=== PATIENT | male | born 1950 | race Caucasian/White ===

== ENCOUNTER 2022-01-31 11:08 | Outpatient (CLI) | payer OTHER ==
[2022-01-31 11:44] LABS: BASOPHILS % (AUTO) 0.3 % (0.0-2.0); EOSINOPHILS % (AUTO) 0.5 % (0.0-4.0); HEMOGLOBIN 10.7 g/dL (14.0-18.0); LYMPHOCYTES % (AUTO) 25.9 % (20.5-51.5); MEAN CORPUSCULAR HEMOGLOBIN 29 pg (27-31); MEAN CORPUSCULAR HGB CONC 32 % (32-36); MEAN CORPUSCULAR VOLUME 93 fL (79.0-98.0); MONOCYTES # (AUTO) 0.7 K/uL (0.0-1.0); MONOCYTES % (AUTO) 8.4 % (1.7-9.3); NEUTROPHILS # (AUTO) 5.1 K/uL (1.8-7.7); NEUTROPHILS % (AUTO) 64.9 % (40.0-70.0); PLATELET COUNT (AUTO) 203 K/uL (130-430); RED BLOOD CELL COUNT(AUTO) 3.67 MIL/uL (4.2-6.2); RED CELL DISTRIBUTION WIDTH 16.5 % (9.0-15.0); WHITE BLOOD COUNT (AUTO) 7.8 K/uL (4.8-10.8)
[2022-01-31 11:47] LABS: CALCIUM 8.9 mg/dL (8.4-11.0); CREATININE 6.82 mg/dL (0.55-1.30); POTASSIUM 5.4 mmol/L (3.5-5.1)
[2022-01-31 11:50] LABS: INR 0.9 (0.80-1.20); PROTHROMBIN TIME 9.8 SECS (9.5-12.5)
[2022-01-31 11:59] LABS: BILIRUBIN,URINE NEGATIVE (NEGATIVE); BLOOD, URINE NEGATIVE (NEGATIVE); CLARITY/URINE CLEAR (CLEAR); COLOR,URINE YELLOW (YELLOW); GLUCOSE,URINE TRACE (NEGATIVE); KETONES,URINE NEGATIVE (NEGATIVE); LEUKOCYTE ESTERASE ,URINE NEGATIVE (NEGATIVE); NITRITE, URINE NEGATIVE (NEGATIVE); PROTEIN URINE 3+ (NEGATIVE); UROBILINOGEN,URINE 0.2 (0.2-1.0)
[2022-01-31 13:07] LABS: BACTERIA,URINE RARE /HPF (None Seen); HYALINE CASTS, URINE 0-10 /LPF (None Seen); RBC,URINE 0-3 /HPF (0-3); WBC,URINE 0-3 /HPF (0-3)
== END 2022-01-31 18:53 | disposition home or self-care (01) ==
LOC: SLB 11:08
PROVIDERS: ATTEND Internal Medicine
DX: Z01.812 Encounter for preprocedural laboratory examination (principal); I10 Essential (primary) hypertension; E11.22 Type 2 diabetes mellitus with diabetic chronic kidney disease; N18.9 Chronic kidney disease, unspecified
CPT/HCPCS: 36415; 80048; 81000; 85025; 85610-TC; 85730-TC

== ENCOUNTER 2022-10-22 15:31 | Inpatient (IN) | payer OTHER ==
[~2022-10-22] VITALS: Ht 167.6 cm; Wt 76.9 kg
[2022-10-22 15:35] VITALS: BP_SYST 100
[2022-10-22 17:43] LABS: BASOPHILS % (AUTO) 0.2 % (0.0-2.0); EOSINOPHILS % (AUTO) 0.1 % (0.0-4.0); HEMATOCRIT 35.6 % (36-54); HEMOGLOBIN 11.1 g/dL (14.0-18.0); LYMPHOCYTES # (AUTO) 1.8 K/uL (1.0-5.5); MEAN CORPUSCULAR HEMOGLOBIN 29 pg (27-31); MEAN CORPUSCULAR HGB CONC 31 % (32-36); MEAN CORPUSCULAR VOLUME 91 fL (79.0-98.0); MONOCYTES # (AUTO) 0.7 K/uL (0.0-1.0); MONOCYTES % (AUTO) 9.6 % (1.7-9.3); NEUTROPHILS # (AUTO) 5.2 K/uL (1.8-7.7); NEUTROPHILS % (AUTO) 67.1 % (40.0-70.0); PLATELET COUNT (AUTO) 218 K/uL (130-430); RED CELL DISTRIBUTION WIDTH 19.3 % (9.0-15.0); WHITE BLOOD COUNT (AUTO) 7.7 K/uL (4.8-10.8)
[2022-10-22 18:10] LABS: ANION GAP 13 (5-15); CALCIUM 9.6 mg/dL (8.4-11.0); CHLORIDE 98 mmol/L (98-107); GLUCOSE 161 mg/dL (70-99); UREA NITROGEN, BLOOD 77 mg/dL (8-21)
[2022-10-22 18:21] LABS: ALANINE AMINOTRANSFERASE 35 U/L (12-78); ALBUMIN 2.8 g/dL (3.4-4.8); ASPARTATE AMINOTRANSFERASE 45 U/L (10-37); TOTAL BILIRUBIN 0.4 mg/dL (0.0-1.0)
[2022-10-22 18:29] LABS: CREATININE 8.94 mg/dL (0.55-1.30)
[2022-10-22 18:55] LABS: C-REACTIVE PROTEIN QUANT 19.6 mg/dL (0-0.5)
[2022-10-22] MEDS ORDERED: AZITHROMYCIN 500 MG in NS 250 ML IV ONE (23:15)
[2022-10-22] MEDS ORDERED: cefTRIAXone 1 GM in D5W 50 ML IV SCH (23:15)
[2022-10-22] MEDS ORDERED: ALBUTEROL MDI INHALATION 8 GM INH INH PRN (23:15)
[2022-10-22] MEDS ORDERED: AZITHROMYCIN 500 MG/VIAL (ZITHROMAX) IV ONE (23:35)
[2022-10-22] MEDS ORDERED: guaiFENesin/DEXTROMETHORPHAN 118 ML PO PRN (23:45)
[2022-10-22] MEDS: DEXAMETHASONE SOD PHOSPHATE 10 MG/ML VIAL IVP SCH (23:45)
[2022-10-22] MEDS ORDERED: DEXTROSE 50% JECT 50 ML DISP.SYRIN IVP PRN (23:45)
[2022-10-23 00:16] VITALS: BP_SYST 146
[2022-10-23] MEDS ORDERED: cefTRIAXone 1 GM IVPB PREMIX 50 ML IV ONE (01:13)
[2022-10-23 07:30] LABS: HEMATOCRIT 35.5 % (36-54); HEMOGLOBIN 10.9 g/dL (14.0-18.0); LYMPHOCYTES # (AUTO) 0.9 K/uL (1.0-5.5); LYMPHOCYTES % (AUTO) 13.5 % (20.5-51.5); MEAN CORPUSCULAR HEMOGLOBIN 28 pg (27-31); MEAN CORPUSCULAR HGB CONC 31 % (32-36); MEAN CORPUSCULAR VOLUME 92 fL (79.0-98.0); MONOCYTES # (AUTO) 0.2 K/uL (0.0-1.0); MONOCYTES % (AUTO) 3.2 % (1.7-9.3); NEUTROPHILS # (AUTO) 5.4 K/uL (1.8-7.7); NEUTROPHILS % (AUTO) 83.3 % (40.0-70.0); PLATELET COUNT (AUTO) 214 K/uL (130-430); RED BLOOD CELL COUNT(AUTO) 3.85 MIL/uL (4.2-6.2); RED CELL DISTRIBUTION WIDTH 19.2 % (9.0-15.0); WHITE BLOOD COUNT (AUTO) 6.5 K/uL (4.8-10.8)
[2022-10-23 08:16] LABS: ANION GAP 17 (5-15); CALCIUM 8.7 mg/dL (8.4-11.0); CHLORIDE 96 mmol/L (98-107); GLUCOSE 174 mg/dL (70-99); UREA NITROGEN, BLOOD 94 mg/dL (8-21)
[2022-10-23 08:24] LABS: TOTAL BILIRUBIN 0.3 mg/dL (0.0-1.0)
[2022-10-23 08:25] LABS: ALANINE AMINOTRANSFERASE 28 U/L (12-78); ALBUMIN 2.4 g/dL (3.4-4.8); ASPARTATE AMINOTRANSFERASE 32 U/L (10-37); CHOLESTEROL 118 mg/dL (<200); HDL CHOLESTEROL 59 mg/dL (>45); PHOSPHORUS 7.9 mg/dL (2.7-4.5); TRIGLYCERIDES 119 mg/dL (30-150)
[2022-10-23] MEDS: BRIMONIDINE TARTRATE 0.2% 5 mL EYE DROPS OP SCH ×2 (09:28→22:54)
[2022-10-23] MEDS: ATORVASTATIN 20 MG TABLET PO ONE ×2 (09:30→11:58)
[2022-10-23] MEDS ORDERED: CARVEDILOL 12.5 MG TABLET (COREG) PO ONE (09:30)
[2022-10-23] MEDS: RANOLAZINE 500 MG TAB.SR.12H PO ONE ×2 (09:30→11:58)
[2022-10-23] MEDS: ALBUTEROL MDI INHALATION 8 GM INH INH SCH ×3 (09:37→17:00)
[2022-10-23 09:50] VITALS: BP_SYST 146
[2022-10-23 11:00] VITALS: BP_SYST 149
[2022-10-23] MEDS: SODIUM POLYSTYRENE SULFONATE 15 GM/60 ML UDBTL PO ONE ×2 (11:15→11:57)
[2022-10-23] MEDS: CALCIUM ACETATE 667 MG CAP PO SCH ×2 (11:57→17:02)
[2022-10-23] MEDS: INSULIN GLARGINE 100 UNITS/ML, 10 ML VIAL SUBCUT SCH (12:06)
[2022-10-23] MEDS: INSULIN REGULAR, HUMAN 100 UNITS/ML, 3 ML VIAL (humuLIN R) SUBCUT PRN ×3 (12:10→23:02)
[2022-10-23] MEDS ORDERED: CHOLECALCIFEROL (VITAMIN D3) 2,000 UNIT TABLET PO ONE (14:30)
[2022-10-23] MEDS: AZITHROMYCIN 500 MG in NS 250 ML IV SCH (14:54)
[2022-10-23] MEDS: CEFEPIME 2 GM in D5W 100 ML IV SCH (14:55)
[2022-10-23 16:41] VITALS: BP_SYST 133
[2022-10-23 20:00] VITALS: BP_SYST 143
[2022-10-23] MEDS: LATANOPROST 2.5 ML DROPS (XALATAN) OP SCH (21:00)
[2022-10-23] MEDS: DEXAMETHASONE SOD PHOSPHATE 10 MG/ML VIAL IVP SCH (22:53)
[2022-10-23] MEDS: ENOXAPARIN SODIUM 30 MG/0.3 ML SYRINGE SUBCUT SCH (22:54)
[2022-10-23] MEDS: CARVEDILOL 12.5 MG TABLET (COREG) PO SCH (23:01)
[2022-10-24 00:38] VITALS: BP_SYST 128
[2022-10-24] MEDS: INSULIN REGULAR, HUMAN 100 UNITS/ML, 3 ML VIAL (humuLIN R) SUBCUT PRN ×3 (06:17→17:10)
[2022-10-24 08:00] VITALS: BP_SYST 125
[2022-10-24] MEDS: ALBUTEROL MDI INHALATION 8 GM INH INH SCH ×4 (08:27→21:03)
[2022-10-24] MEDS ORDERED: BARICITINIB -Non-Formulary 2 MG TABLET PO SCH (09:00)
[2022-10-24 09:21] LABS: BASOPHILS % (AUTO) 0.1 % (0.0-2.0); HEMATOCRIT 36.3 % (36-54); HEMOGLOBIN 11.3 g/dL (14.0-18.0); LYMPHOCYTES # (AUTO) 0.7 K/uL (1.0-5.5); LYMPHOCYTES % (AUTO) 7.1 % (20.5-51.5); MEAN CORPUSCULAR HEMOGLOBIN 29 pg (27-31); MEAN CORPUSCULAR HGB CONC 31 % (32-36); MEAN CORPUSCULAR VOLUME 93 fL (79.0-98.0); MONOCYTES # (AUTO) 0.3 K/uL (0.0-1.0); MONOCYTES % (AUTO) 3.6 % (1.7-9.3); NEUTROPHILS # (AUTO) 8.2 K/uL (1.8-7.7); NEUTROPHILS % (AUTO) 89.2 % (40.0-70.0); PLATELET COUNT (AUTO) 221 K/uL (130-430); RED CELL DISTRIBUTION WIDTH 19.3 % (9.0-15.0); WHITE BLOOD COUNT (AUTO) 9.2 K/uL (4.8-10.8)
[2022-10-24] MEDS: CALCIUM ACETATE 667 MG CAP PO SCH ×3 (09:27→17:02)
[2022-10-24] MEDS: ATORVASTATIN 20 MG TABLET PO SCH (09:28)
[2022-10-24] MEDS: RANOLAZINE 500 MG TAB.SR.12H PO SCH (09:28)
[2022-10-24] MEDS: CHOLECALCIFEROL (VITAMIN D3) 2,000 UNIT TABLET PO SCH (09:28)
[2022-10-24] MEDS: ASPIRIN 81 MG TAB.CHEW PO SCH (09:29)
[2022-10-24] MEDS: BRIMONIDINE TARTRATE 0.2% 5 mL EYE DROPS OP SCH ×2 (09:29→21:00)
[2022-10-24] MEDS: CARVEDILOL 12.5 MG TABLET (COREG) PO SCH ×2 (09:30→21:00)
[2022-10-24] MEDS: INSULIN GLARGINE 100 UNITS/ML, 10 ML VIAL SUBCUT SCH (09:31)
[2022-10-24] MEDS: PANTOPRAZOLE SODIUM 40 MG/VIAL (PROTONIX) IVP SCH (09:32)
[2022-10-24 11:21] VITALS: BP_SYST 132
[2022-10-24] MEDS: CEFEPIME 2 GM in D5W 100 ML IV SCH (12:57)
[2022-10-24 13:54] LABS: ANION GAP 15 (5-15); CALCIUM 8.8 mg/dL (8.4-11.0); CHLORIDE 97 mmol/L (98-107); CREATININE 7.58 mg/dL (0.55-1.30); GLUCOSE 237 mg/dL (70-99); UREA NITROGEN, BLOOD 72 mg/dL (8-21)
[2022-10-24] MEDS: AZITHROMYCIN 500 MG in NS 250 ML IV SCH (14:33)
[2022-10-24] MEDS ORDERED: ASCORBIC ACID 500 MG TABLET PO ONE (15:30)
[2022-10-24] MEDS ORDERED: INSULIN REGULAR, HUMAN 100 UNITS/ML, 3 ML VIAL (humuLIN R) SUBCUT PRN (15:45)
[2022-10-24] MEDS ORDERED: DEXTROSE 50% JECT 50 ML DISP.SYRIN IVP PRN (15:45)
[2022-10-24 16:00] VITALS: BP_SYST 129
[2022-10-24] MEDS ORDERED: DOCUSATE SODIUM 100 MG CAPSULE PO ONE (16:00)
[2022-10-24 20:00] VITALS: BP_SYST 127
[2022-10-24] MEDS: LATANOPROST 2.5 ML DROPS (XALATAN) OP SCH (21:00)
[2022-10-24] MEDS: DOCUSATE SODIUM 250 MG CAPSULE PO SCH (21:00)
[2022-10-24] MEDS: ENOXAPARIN SODIUM 30 MG/0.3 ML SYRINGE SUBCUT SCH (21:00)
[2022-10-25] MEDS: DEXAMETHASONE SOD PHOSPHATE 10 MG/ML VIAL IVP SCH ×2 (00:42→23:54)
[2022-10-25 07:40] VITALS: BP_SYST 141
[2022-10-25] MEDS: CALCIUM ACETATE 667 MG CAP PO SCH ×3 (08:44→17:05)
[2022-10-25] MEDS: ASPIRIN 81 MG TAB.CHEW PO SCH (08:45)
[2022-10-25] MEDS: ATORVASTATIN 20 MG TABLET PO SCH (08:45)
[2022-10-25] MEDS: RANOLAZINE 500 MG TAB.SR.12H PO SCH (08:45)
[2022-10-25] MEDS: ASCORBIC ACID 500 MG TABLET PO SCH (08:45)
[2022-10-25] MEDS: CHOLECALCIFEROL (VITAMIN D3) 2,000 UNIT TABLET PO SCH (08:45)
[2022-10-25] MEDS: DOCUSATE SODIUM 250 MG CAPSULE PO SCH ×2 (08:46→21:05)
[2022-10-25] MEDS: CARVEDILOL 12.5 MG TABLET (COREG) PO SCH ×2 (08:46→21:10)
[2022-10-25] MEDS: ALBUTEROL MDI INHALATION 8 GM INH INH SCH ×4 (08:47→19:32)
[2022-10-25] MEDS: BRIMONIDINE TARTRATE 0.2% 5 mL EYE DROPS OP SCH ×2 (08:49→21:05)
[2022-10-25 09:03] LABS: BASOPHILS % (AUTO) 0.1 % (0.0-2.0); HEMATOCRIT 37.1 % (36-54); HEMOGLOBIN 11.7 g/dL (14.0-18.0); LYMPHOCYTES # (AUTO) 0.5 K/uL (1.0-5.5); LYMPHOCYTES % (AUTO) 5.8 % (20.5-51.5); MEAN CORPUSCULAR HEMOGLOBIN 29 pg (27-31); MEAN CORPUSCULAR HGB CONC 32 % (32-36); MEAN CORPUSCULAR VOLUME 91 fL (79.0-98.0); MONOCYTES # (AUTO) 0.3 K/uL (0.0-1.0); MONOCYTES % (AUTO) 3.5 % (1.7-9.3); NEUTROPHILS # (AUTO) 8.6 K/uL (1.8-7.7); NEUTROPHILS % (AUTO) 90.6 % (40.0-70.0); PLATELET COUNT (AUTO) 261 K/uL (130-430); RED BLOOD CELL COUNT(AUTO) 4.08 MIL/uL (4.2-6.2); RED CELL DISTRIBUTION WIDTH 18.5 % (9.0-15.0); WHITE BLOOD COUNT (AUTO) 9.5 K/uL (4.8-10.8)
[2022-10-25] MEDS: INSULIN GLARGINE 100 UNITS/ML, 10 ML VIAL SUBCUT SCH (09:03)
[2022-10-25 09:16] LABS: ALANINE AMINOTRANSFERASE 26 U/L (12-78); ALBUMIN 2.7 g/dL (3.4-4.8); ANION GAP 11 (5-15); ASPARTATE AMINOTRANSFERASE 27 U/L (10-37); CALCIUM 9.1 mg/dL (8.4-11.0); CHLORIDE 94 mmol/L (98-107); CREATININE 5.96 mg/dL (0.55-1.30); GLUCOSE 264 mg/dL (70-99); PHOSPHORUS 5.2 mg/dL (2.7-4.5); TOTAL BILIRUBIN 0.4 mg/dL (0.0-1.0); UREA NITROGEN, BLOOD 58 mg/dL (8-21)
[2022-10-25] MEDS: PANTOPRAZOLE SODIUM 40 MG/VIAL (PROTONIX) IVP SCH (09:57)
[2022-10-25 11:30] VITALS: BP_SYST 120
[2022-10-25] MEDS: INSULIN REGULAR, HUMAN 100 UNITS/ML, 3 ML VIAL (humuLIN R) SUBCUT PRN ×2 (11:54→17:07)
[2022-10-25] MEDS: AZITHROMYCIN 500 MG in NS 250 ML IV SCH (14:06)
[2022-10-25] MEDS: CEFEPIME 2 GM in D5W 100 ML IV SCH (14:06)
[2022-10-25 16:07] VITALS: BP_SYST 116
[2022-10-25 20:00] VITALS: BP_SYST 138
[2022-10-25] MEDS: guaiFENesin/DEXTROMETHORPHAN 10 ML UDC PO PRN (21:04)
[2022-10-25] MEDS: ENOXAPARIN SODIUM 30 MG/0.3 ML SYRINGE SUBCUT SCH (21:05)
[2022-10-25] MEDS: LATANOPROST 2.5 ML DROPS (XALATAN) OP SCH (21:06)
[2022-10-26] VITALS: BP_SYST 126
[2022-10-26 06:08] LABS: BASOPHILS % (AUTO) 0.1 % (0.0-2.0); HEMATOCRIT 33.4 % (36-54); HEMOGLOBIN 10.7 g/dL (14.0-18.0); LYMPHOCYTES # (AUTO) 0.5 K/uL (1.0-5.5); LYMPHOCYTES % (AUTO) 5.9 % (20.5-51.5); MEAN CORPUSCULAR HEMOGLOBIN 29 pg (27-31); MEAN CORPUSCULAR HGB CONC 32 % (32-36); MEAN CORPUSCULAR VOLUME 90 fL (79.0-98.0); MONOCYTES # (AUTO) 0.4 K/uL (0.0-1.0); MONOCYTES % (AUTO) 4.2 % (1.7-9.3); NEUTROPHILS # (AUTO) 8.4 K/uL (1.8-7.7); NEUTROPHILS % (AUTO) 89.8 % (40.0-70.0); PLATELET COUNT (AUTO) 232 K/uL (130-430); RED BLOOD CELL COUNT(AUTO) 3.69 MIL/uL (4.2-6.2); RED CELL DISTRIBUTION WIDTH 18.1 % (9.0-15.0); WHITE BLOOD COUNT (AUTO) 9.3 K/uL (4.8-10.8)
[2022-10-26 06:43] LABS: ANION GAP 18 (5-15); CHLORIDE 92 mmol/L (98-107); GLUCOSE 194 mg/dL (70-99); UREA NITROGEN, BLOOD 99 mg/dL (8-21)
[2022-10-26] MEDS: ALBUTEROL MDI INHALATION 8 GM INH INH SCH ×3 (08:16→19:57)
[2022-10-26] MEDS: CARVEDILOL 12.5 MG TABLET (COREG) PO SCH ×2 (09:00→21:48)
[2022-10-26] MEDS: ASPIRIN 81 MG TAB.CHEW PO SCH (09:00)
[2022-10-26] MEDS: DOCUSATE SODIUM 250 MG CAPSULE PO SCH ×2 (09:00→21:45)
[2022-10-26] MEDS: CHOLECALCIFEROL (VITAMIN D3) 2,000 UNIT TABLET PO SCH (09:23)
[2022-10-26] MEDS: ASCORBIC ACID 500 MG TABLET PO SCH (09:23)
[2022-10-26] MEDS: PANTOPRAZOLE SODIUM 40 MG/VIAL (PROTONIX) IVP SCH (09:24)
[2022-10-26] MEDS: BRIMONIDINE TARTRATE 0.2% 5 mL EYE DROPS OP SCH ×2 (09:25→22:13)
[2022-10-26] MEDS: RANOLAZINE 500 MG TAB.SR.12H PO SCH (09:25)
[2022-10-26] MEDS: CALCIUM ACETATE 667 MG CAP PO SCH ×3 (09:25→17:50)
[2022-10-26] MEDS: ATORVASTATIN 20 MG TABLET PO SCH (09:26)
[2022-10-26] MEDS: INSULIN GLARGINE 100 UNITS/ML, 10 ML VIAL SUBCUT SCH (09:30)
[2022-10-26 09:39] VITALS: BP_SYST 126
[2022-10-26 11:47] VITALS: BP_SYST 113
[2022-10-26] MEDS: CEFEPIME 2 GM in D5W 100 ML IV SCH (12:24)
[2022-10-26] MEDS: INSULIN REGULAR, HUMAN 100 UNITS/ML, 3 ML VIAL (humuLIN R) SUBCUT PRN ×2 (12:26→22:22)
[2022-10-26] MEDS ORDERED: ALPRAZolam 0.25 MG TABLET PO ONE (12:45)
[2022-10-26 13:49] LABS: BILIRUBIN,URINE NEGATIVE (NEGATIVE); CLARITY/URINE CLEAR (CLEAR); COLOR,URINE YELLOW (YELLOW); GLUCOSE,URINE TRACE (NEGATIVE); KETONES,URINE 1+ (NEGATIVE); LEUKOCYTE ESTERASE ,URINE 2+ (NEGATIVE); NITRITE, URINE NEGATIVE (NEGATIVE); PH,URINE 5.5 (5.0-8.0); PROTEIN URINE 2+ (NEGATIVE); UROBILINOGEN,URINE 0.2 (0.2-1.0)
[2022-10-26 13:52] LABS: BLOOD, URINE TRACE (NEGATIVE)
[2022-10-26 13:57] LABS: BACTERIA,URINE FEW /HPF (None Seen); RBC,URINE 0-3 /HPF (0-3)
[2022-10-26 13:58] LABS: MUCUS,URINE None Seen /LPF (None Seen)
[2022-10-26 16:33] VITALS: BP_SYST 134
[2022-10-26] MEDS: EPOETIN ALFA-EPBX 3,000 UNITS/ML VIAL SUBCUT SCH (17:51)
[2022-10-26 20:00] VITALS: BP_SYST 122
[2022-10-26] MEDS: LATANOPROST 2.5 ML DROPS (XALATAN) OP SCH (21:00)
[2022-10-26] MEDS: LINEZOLID 300 ML IV SCH (21:45)
[2022-10-26] MEDS: ENOXAPARIN SODIUM 30 MG/0.3 ML SYRINGE SUBCUT SCH (21:46)
[2022-10-26] MEDS: DEXAMETHASONE SOD PHOSPHATE 10 MG/ML VIAL IVP SCH (22:23)
[2022-10-27] VITALS: BP_SYST 130
[2022-10-27] MEDS ORDERED: DIPHENHYDRAMINE INJ 50 MG/ML VIAL IM ONE (01:30)
[2022-10-27] MEDS: DIPHENHYDRAMINE INJ 50 MG/ML VIAL IVP PRN (01:42)
[2022-10-27 06:55] LABS: BASOPHILS % (AUTO) 0.1 % (0.0-2.0); HEMATOCRIT 35.6 % (36-54); HEMOGLOBIN 11.4 g/dL (14.0-18.0); LYMPHOCYTES # (AUTO) 0.7 K/uL (1.0-5.5); LYMPHOCYTES % (AUTO) 6.9 % (20.5-51.5); MEAN CORPUSCULAR HEMOGLOBIN 29 pg (27-31); MEAN CORPUSCULAR HGB CONC 32 % (32-36); MEAN CORPUSCULAR VOLUME 90 fL (79.0-98.0); MONOCYTES # (AUTO) 0.3 K/uL (0.0-1.0); MONOCYTES % (AUTO) 3.1 % (1.7-9.3); NEUTROPHILS # (AUTO) 8.8 K/uL (1.8-7.7); NEUTROPHILS % (AUTO) 89.9 % (40.0-70.0); PLATELET COUNT (AUTO) 290 K/uL (130-430); RED BLOOD CELL COUNT(AUTO) 3.98 MIL/uL (4.2-6.2); RED CELL DISTRIBUTION WIDTH 18.5 % (9.0-15.0); WHITE BLOOD COUNT (AUTO) 9.8 K/uL (4.8-10.8)
[2022-10-27 07:07] LABS: ALANINE AMINOTRANSFERASE 22 U/L (12-78); ALBUMIN 2.6 g/dL (3.4-4.8); ANION GAP 17 (5-15); ASPARTATE AMINOTRANSFERASE 23 U/L (10-37); CALCIUM 9.3 mg/dL (8.4-11.0); CHLORIDE 93 mmol/L (98-107); CREATININE 7.28 mg/dL (0.55-1.30); GLUCOSE 197 mg/dL (70-99); TOTAL BILIRUBIN 0.4 mg/dL (0.0-1.0); UREA NITROGEN, BLOOD 88 mg/dL (8-21)
[2022-10-27] MEDS: ALBUTEROL MDI INHALATION 8 GM INH INH SCH ×2 (07:27→12:45)
[2022-10-27 08:00] VITALS: BP_SYST 143
[2022-10-27] MEDS: PANTOPRAZOLE SODIUM 40 MG/VIAL (PROTONIX) IVP SCH (09:37)
[2022-10-27] MEDS: INSULIN GLARGINE 100 UNITS/ML, 10 ML VIAL SUBCUT SCH (09:37)
[2022-10-27] MEDS: ASPIRIN 81 MG TAB.CHEW PO SCH (09:38)
[2022-10-27] MEDS: CHOLECALCIFEROL (VITAMIN D3) 2,000 UNIT TABLET PO SCH (09:38)
[2022-10-27] MEDS: ASCORBIC ACID 500 MG TABLET PO SCH (09:38)
[2022-10-27] MEDS: CALCIUM ACETATE 667 MG CAP PO SCH ×3 (09:38→18:19)
[2022-10-27] MEDS: ATORVASTATIN 20 MG TABLET PO SCH (09:38)
[2022-10-27] MEDS: CARVEDILOL 12.5 MG TABLET (COREG) PO SCH ×2 (09:38→20:31)
[2022-10-27] MEDS: RANOLAZINE 500 MG TAB.SR.12H PO SCH (09:39)
[2022-10-27] MEDS: DOCUSATE SODIUM 250 MG CAPSULE PO SCH ×2 (09:39→20:31)
[2022-10-27] MEDS: LINEZOLID 300 ML IV SCH ×2 (09:43→20:32)
[2022-10-27] MEDS: BRIMONIDINE TARTRATE 0.2% 5 mL EYE DROPS OP SCH ×2 (09:43→20:31)
[2022-10-27 11:34] VITALS: BP_SYST 129
[2022-10-27] MEDS: INSULIN REGULAR, HUMAN 100 UNITS/ML, 3 ML VIAL (humuLIN R) SUBCUT PRN ×3 (11:40→20:48)
[2022-10-27] MEDS: CEFEPIME 2 GM in D5W 100 ML IV SCH (14:04)
[2022-10-27] MEDS ORDERED: ALBUTEROL MDI INHALATION 8 GM INH INH ONE (15:45)
[2022-10-27 16:33] VITALS: BP_SYST 143
[2022-10-27 20:00] VITALS: BP_SYST 150
[2022-10-27] MEDS ORDERED: traZODone HCL 50 MG TABLET (DESYREL) PO SCH (20:00)
[2022-10-27] MEDS: LATANOPROST 2.5 ML DROPS (XALATAN) OP SCH (20:32)
[2022-10-27] MEDS: ENOXAPARIN SODIUM 30 MG/0.3 ML SYRINGE SUBCUT SCH (20:43)
[2022-10-27] MEDS ORDERED: DEXAMETHASONE SOD PHOSPHATE 10 MG/ML VIAL IVP SCH (23:15)
[2022-10-28] VITALS (17 sets, daily range): BP systolic 78–186
[2022-10-28] MEDS: ALBUTEROL MDI INHALATION 8 GM INH INH SCH ×5 (06:39→15:00)
[2022-10-28 06:46] LABS: ALANINE AMINOTRANSFERASE 22 U/L (12-78); ALBUMIN 2.5 g/dL (3.4-4.8); ANION GAP 19 (5-15); ASPARTATE AMINOTRANSFERASE 28 U/L (10-37); CALCIUM 9.7 mg/dL (8.4-11.0); CHLORIDE 90 mmol/L (98-107); GLUCOSE 117 mg/dL (70-99); TOTAL BILIRUBIN 0.4 mg/dL (0.0-1.0)
[2022-10-28 07:04] LABS: BASOPHILS % (AUTO) 0.1 % (0.0-2.0); EOSINOPHILS % (AUTO) 0.1 % (0.0-4.0); HEMOGLOBIN 11.4 g/dL (14.0-18.0); LYMPHOCYTES # (AUTO) 0.9 K/uL (1.0-5.5); LYMPHOCYTES % (AUTO) 7.6 % (20.5-51.5); MEAN CORPUSCULAR HEMOGLOBIN 29 pg (27-31); MEAN CORPUSCULAR HGB CONC 32 % (32-36); MEAN CORPUSCULAR VOLUME 90 fL (79.0-98.0); MONOCYTES # (AUTO) 0.7 K/uL (0.0-1.0); MONOCYTES % (AUTO) 5.9 % (1.7-9.3); NEUTROPHILS # (AUTO) 9.9 K/uL (1.8-7.7); NEUTROPHILS % (AUTO) 86.3 % (40.0-70.0); PLATELET COUNT (AUTO) 318 K/uL (130-430); WHITE BLOOD COUNT (AUTO) 11.4 K/uL (4.8-10.8)
[2022-10-28 07:28] LABS: CREATININE 9.17 mg/dL (0.55-1.30); UREA NITROGEN, BLOOD 117 mg/dL (8-21)
[2022-10-28] MEDS: CALCIUM ACETATE 667 MG CAP PO SCH ×3 (08:00→18:00)
[2022-10-28] MEDS: ASCORBIC ACID 500 MG TABLET PO SCH (09:00)
[2022-10-28] MEDS: DOCUSATE SODIUM 250 MG CAPSULE PO SCH ×2 (09:00→20:59)
[2022-10-28] MEDS: RANOLAZINE 500 MG TAB.SR.12H PO SCH (09:03)
[2022-10-28] MEDS: PANTOPRAZOLE SODIUM 40 MG/VIAL (PROTONIX) IVP SCH (09:03)
[2022-10-28] MEDS: CARVEDILOL 12.5 MG TABLET (COREG) PO SCH ×2 (09:04→21:00)
[2022-10-28] MEDS: ASPIRIN 81 MG TAB.CHEW PO SCH (09:05)
[2022-10-28] MEDS: CHOLECALCIFEROL (VITAMIN D3) 2,000 UNIT TABLET PO SCH (09:05)
[2022-10-28] MEDS: ATORVASTATIN 20 MG TABLET PO SCH (09:05)
[2022-10-28] MEDS: BRIMONIDINE TARTRATE 0.2% 5 mL EYE DROPS OP SCH ×2 (09:06→20:58)
[2022-10-28] MEDS: LINEZOLID 300 ML IV SCH (09:50)
[2022-10-28] MEDS: INSULIN GLARGINE 100 UNITS/ML, 10 ML VIAL SUBCUT SCH (12:30)
[2022-10-28 13:08] LABS: PROTHROMBIN TIME 10.5 SECS (9.5-12.5)
[2022-10-28] MEDS ORDERED: ATROPINE SULFATE 1 MG/10 ML SYRINGE IVP ONE (13:30)
[2022-10-28] MEDS: PROPOFOL DRIP 100 ML IV PRN ×2 (13:54→19:03)
[2022-10-28] MEDS ORDERED: PROPOFOL DRIP 100 ML IV ONE (13:54)
[2022-10-28] MEDS ORDERED: ALBUMIN HUMAN 25% 200 ML IV ONE (14:00)
[2022-10-28] MEDS ORDERED: NOREPINEPHRINE BITARTRATE 4 MG in NS 246 ML IV PRN (14:00)
[2022-10-28 14:20] LABS: BASOPHILS % (AUTO) 0.2 % (0.0-2.0); EOSINOPHILS % (AUTO) 0.1 % (0.0-4.0); HEMATOCRIT 35.4 % (36-54); HEMOGLOBIN 11.2 g/dL (14.0-18.0); LYMPHOCYTES # (AUTO) 1.9 K/uL (1.0-5.5); LYMPHOCYTES % (AUTO) 15.2 % (20.5-51.5); MEAN CORPUSCULAR HEMOGLOBIN 29 pg (27-31); MEAN CORPUSCULAR HGB CONC 32 % (32-36); MEAN CORPUSCULAR VOLUME 91 fL (79.0-98.0); MONOCYTES # (AUTO) 0.8 K/uL (0.0-1.0); MONOCYTES % (AUTO) 6.4 % (1.7-9.3); NEUTROPHILS # (AUTO) 9.5 K/uL (1.8-7.7); NEUTROPHILS % (AUTO) 78.1 % (40.0-70.0); PLATELET COUNT (AUTO) 341 K/uL (130-430); RED CELL DISTRIBUTION WIDTH 18.7 % (9.0-15.0); WHITE BLOOD COUNT (AUTO) 12.2 K/uL (4.8-10.8)
[2022-10-28] MEDS ORDERED: NOREPINEPHRINE 4 MG/4 ML VIAL IV ONE (14:22)
[2022-10-28 14:43] LABS: ANION GAP 16 (5-15); CALCIUM 11.1 mg/dL (8.4-11.0); CHLORIDE 92 mmol/L (98-107); GLUCOSE 151 mg/dL (70-99); PROTHROMBIN TIME 10.5 SECS (9.5-12.5)
[2022-10-28 14:47] LABS: ALANINE AMINOTRANSFERASE 172 U/L (12-78); ALBUMIN 2.4 g/dL (3.4-4.8); ASPARTATE AMINOTRANSFERASE 185 U/L (10-37); PHOSPHORUS 7.9 mg/dL (2.7-4.5); TOTAL BILIRUBIN 0.4 mg/dL (0.0-1.0)
[2022-10-28 14:48] LABS: CREATININE 9.08 mg/dL (0.55-1.30); UREA NITROGEN, BLOOD 107 mg/dL (8-21)
[2022-10-28] MEDS ORDERED: ETOMIDATE 20 MG/ 10 ML VIAL (AMIDATE) IVP ONE (14:56)
[2022-10-28] MEDS ORDERED: SODIUM BICARBONATE 8.4% JECT 50 MEQ/50 ML SYRINGE IVP ONE (15:45)
[2022-10-28] MEDS: EPOETIN ALFA-EPBX 3,000 UNITS/ML VIAL SUBCUT SCH (16:27)
[2022-10-28] MEDS ORDERED: NOREPINEPHRINE BITARTRATE 8 MG in NS 242 ML IV PRN (17:30)
[2022-10-28] MEDS: LATANOPROST 2.5 ML DROPS (XALATAN) OP SCH (20:58)
[2022-10-28] MEDS: PIPERACILLIN/TAZO 2.25G/DEX-IS 50 ML IV SCH (21:01)
[2022-10-28] MEDS: DEXAMETHASONE SOD PHOSPHATE 10 MG/ML VIAL IVP SCH (21:20)
[2022-10-28] MEDS: ENOXAPARIN SODIUM 30 MG/0.3 ML SYRINGE SUBCUT SCH (21:24)
[2022-10-28] MEDS: MIDAZOLAM IN NACL,ISO-OSMOT/PF 100 ML IV PRN (21:51)
[2022-10-29] VITALS (34 sets, daily range): BP systolic 85–171
[2022-10-29] MEDS: PROPOFOL DRIP 100 ML IV PRN ×4 (01:00→21:23)
[2022-10-29] MEDS: PIPERACILLIN/TAZO 2.25G/DEX-IS 50 ML IV SCH ×3 (06:11→21:20)
[2022-10-29 06:23] LABS: CALCIUM 9.5 mg/dL (8.4-11.0); CHLORIDE 88 mmol/L (98-107); GLUCOSE 166 mg/dL (70-99)
[2022-10-29 06:27] LABS: ALANINE AMINOTRANSFERASE 104 U/L (12-78); ALBUMIN 2.8 g/dL (3.4-4.8); TOTAL BILIRUBIN 0.6 mg/dL (0.0-1.0)
[2022-10-29] MEDS: ALBUTEROL MDI INHALATION 8 GM INH INH SCH ×4 (07:00→19:57)
[2022-10-29 07:57] LABS: BASOPHILS # (AUTO) 0.1 K/uL (0.0-0.2); EOSINOPHILS # (AUTO) 0.4 K/uL (0.0-0.4); EOSINOPHILS % (AUTO) 4.4 % (0.0-4.0); HEMATOCRIT 27.6 % (36-54); HEMOGLOBIN 9.2 g/dL (14.0-18.0); LYMPHOCYTES # (AUTO) 0.9 K/uL (1.0-5.5); LYMPHOCYTES % (AUTO) 10.4 % (20.5-51.5); MEAN CORPUSCULAR HEMOGLOBIN 30 pg (27-31); MEAN CORPUSCULAR HGB CONC 34 % (32-36); MEAN CORPUSCULAR VOLUME 90 fL (79.0-98.0); MONOCYTES # (AUTO) 0.3 K/uL (0.0-1.0); MONOCYTES % (AUTO) 4.1 % (1.7-9.3); NEUTROPHILS # (AUTO) 6.9 K/uL (1.8-7.7); NEUTROPHILS % (AUTO) 80.1 % (40.0-70.0); PLATELET COUNT (AUTO) 310 K/uL (130-430); RED BLOOD CELL COUNT(AUTO) 3.08 MIL/uL (4.2-6.2); RED CELL DISTRIBUTION WIDTH 18.8 % (9.0-15.0); WHITE BLOOD COUNT (AUTO) 8.6 K/uL (4.8-10.8)
[2022-10-29] MEDS: CHOLECALCIFEROL (VITAMIN D3) 2,000 UNIT TABLET PO SCH ×2 (08:27→08:33)
[2022-10-29] MEDS: cloNIDine HCL 0.1 MG TABLET PO PRN (08:27)
[2022-10-29] MEDS: ASPIRIN 81 MG TAB.CHEW PO SCH ×2 (08:28→08:31)
[2022-10-29] MEDS: ASCORBIC ACID 500 MG TABLET PO SCH (08:28)
[2022-10-29] MEDS: ATORVASTATIN 20 MG TABLET PO SCH (08:28)
[2022-10-29] MEDS: CALCIUM ACETATE 667 MG CAP PO SCH ×3 (08:29→18:28)
[2022-10-29 08:44] LABS: ANION GAP 25 (5-15)
[2022-10-29] MEDS: PANTOPRAZOLE SODIUM 40 MG/VIAL (PROTONIX) IVP SCH (08:44)
[2022-10-29 08:49] LABS: CREATININE 9.75 mg/dL (0.55-1.30); UREA NITROGEN, BLOOD 121 mg/dL (8-21)
[2022-10-29 09:00] LABS: ASPARTATE AMINOTRANSFERASE 79 U/L (10-37); PHOSPHORUS 6.1 mg/dL (2.7-4.5)
[2022-10-29] MEDS: CARVEDILOL 12.5 MG TABLET (COREG) PO SCH ×2 (09:00→21:18)
[2022-10-29] MEDS: INSULIN GLARGINE 100 UNITS/ML, 10 ML VIAL SUBCUT SCH (09:00)
[2022-10-29] MEDS: RANOLAZINE 500 MG TAB.SR.12H PO SCH (09:59)
[2022-10-29] MEDS: DOCUSATE SODIUM 250 MG CAPSULE PO SCH ×2 (10:00→20:50)
[2022-10-29] MEDS: BRIMONIDINE TARTRATE 0.2% 5 mL EYE DROPS OP SCH ×2 (10:00→20:48)
[2022-10-29] MEDS: MICAFUNGIN SODIUM 50 MG in NS 50 ML IV SCH (12:18)
[2022-10-29] MEDS: TOCILIZUMAB 400 MG in NS 100 ML IV ONE ×2 (15:00→15:23)
[2022-10-29] MEDS ORDERED: hydrALAZINE HCL 20 MG/ML VIAL IVP PRN (16:45)
[2022-10-29] MEDS ORDERED: SODIUM BICARBONATE 8.4% JECT 50 MEQ/50 ML SYRINGE IVP ONE (16:45)
[2022-10-29] MEDS: DEXAMETHASONE SOD PHOSPHATE 10 MG/ML VIAL IVP SCH (20:46)
[2022-10-29] MEDS: LATANOPROST 2.5 ML DROPS (XALATAN) OP SCH (20:50)
[2022-10-29] MEDS: ENOXAPARIN SODIUM 30 MG/0.3 ML SYRINGE SUBCUT SCH (21:19)
[2022-10-30] VITALS (31 sets, daily range): BP systolic 92–201
[2022-10-30] MEDS: MIDAZOLAM IN NACL,ISO-OSMOT/PF 100 ML IV PRN (03:51)
[2022-10-30] MEDS: INSULIN REGULAR, HUMAN 100 UNITS/ML, 3 ML VIAL (humuLIN R) SUBCUT PRN ×4 (05:34→21:30)
[2022-10-30] MEDS: PROPOFOL DRIP 100 ML IV PRN ×4 (05:44→21:41)
[2022-10-30] MEDS: PIPERACILLIN/TAZO 2.25G/DEX-IS 50 ML IV SCH ×3 (05:45→21:24)
[2022-10-30 06:22] LABS: BASOPHILS % (AUTO) 0.1 % (0.0-2.0); HEMATOCRIT 27.2 % (36-54); HEMOGLOBIN 8.9 g/dL (14.0-18.0); LYMPHOCYTES # (AUTO) 0.4 K/uL (1.0-5.5); LYMPHOCYTES % (AUTO) 6.2 % (20.5-51.5); MEAN CORPUSCULAR HEMOGLOBIN 29 pg (27-31); MEAN CORPUSCULAR HGB CONC 33 % (32-36); MEAN CORPUSCULAR VOLUME 89 fL (79.0-98.0); MONOCYTES # (AUTO) 0.3 K/uL (0.0-1.0); MONOCYTES % (AUTO) 4.1 % (1.7-9.3); NEUTROPHILS # (AUTO) 5.7 K/uL (1.8-7.7); NEUTROPHILS % (AUTO) 89.6 % (40.0-70.0); PLATELET COUNT (AUTO) 255 K/uL (130-430); RED BLOOD CELL COUNT(AUTO) 3.05 MIL/uL (4.2-6.2); RED CELL DISTRIBUTION WIDTH 18.7 % (9.0-15.0); WHITE BLOOD COUNT (AUTO) 6.4 K/uL (4.8-10.8)
[2022-10-30 06:41] LABS: ANION GAP 12 (5-15); CALCIUM 8.8 mg/dL (8.4-11.0); CHLORIDE 93 mmol/L (98-107); CREATININE 7.04 mg/dL (0.55-1.30); GLUCOSE 340 mg/dL (70-99); UREA NITROGEN, BLOOD 76 mg/dL (8-21)
[2022-10-30 06:48] LABS: ALANINE AMINOTRANSFERASE 72 U/L (12-78); ALBUMIN 2.4 g/dL (3.4-4.8); ASPARTATE AMINOTRANSFERASE 40 U/L (10-37); TOTAL BILIRUBIN 0.5 mg/dL (0.0-1.0)
[2022-10-30] MEDS: CALCIUM ACETATE 667 MG CAP PO SCH ×3 (08:06→12:27)
[2022-10-30] MEDS: ASCORBIC ACID 500 MG TABLET PO SCH (08:07)
[2022-10-30] MEDS: ATORVASTATIN 20 MG TABLET PO SCH (08:07)
[2022-10-30] MEDS: DOCUSATE SODIUM 250 MG CAPSULE PO SCH ×2 (08:07→21:20)
[2022-10-30] MEDS: cloNIDine HCL 0.1 MG TABLET PO PRN (08:08)
[2022-10-30] MEDS: PANTOPRAZOLE SODIUM 40 MG/VIAL (PROTONIX) IVP SCH (08:09)
[2022-10-30] MEDS: CHOLECALCIFEROL (VITAMIN D3) 2,000 UNIT TABLET PO SCH (08:09)
[2022-10-30] MEDS: ASPIRIN 81 MG TAB.CHEW PO SCH (08:09)
[2022-10-30] MEDS: BRIMONIDINE TARTRATE 0.2% 5 mL EYE DROPS OP SCH ×2 (08:10→21:18)
[2022-10-30] MEDS: RANOLAZINE 500 MG TAB.SR.12H PO SCH (08:11)
[2022-10-30] MEDS: INSULIN GLARGINE 100 UNITS/ML, 10 ML VIAL SUBCUT SCH (08:19)
[2022-10-30] MEDS ORDERED: ATROPINE SULFATE 1 MG/10 ML SYRINGE IVP ONE ×2 (09:16→09:30)
[2022-10-30] MEDS ORDERED: LACTULOSE 20 GM/30 ML UDC PO SCH (09:30)
[2022-10-30] MEDS ORDERED: ATROPINE SULFATE 1 MG/10 ML SYRINGE IVP PRN (09:45)
[2022-10-30] MEDS ORDERED: LACTULOSE 20 GM/30 ML UDC PO ONE (10:30)
[2022-10-30] MEDS: ALBUTEROL MDI INHALATION 8 GM INH INH SCH ×3 (11:31→20:23)
[2022-10-30] MEDS: MICAFUNGIN SODIUM 50 MG in NS 50 ML IV SCH (12:01)
[2022-10-30] MEDS ORDERED: THEOPHYLLINE ANHYDROUS 200 MG CAP.ER.24H PO ONE (12:15)
[2022-10-30] MEDS: EPOETIN ALFA-EPBX 3,000 UNITS/ML VIAL SUBCUT SCH (17:13)
[2022-10-30] MEDS: DEXAMETHASONE SOD PHOSPHATE 10 MG/ML VIAL IVP SCH (21:17)
[2022-10-30] MEDS: LATANOPROST 2.5 ML DROPS (XALATAN) OP SCH (21:19)
[2022-10-30] MEDS: LACTULOSE 20 GM/30 ML UDC PO SCH (21:22)
[2022-10-30] MEDS: ENOXAPARIN SODIUM 30 MG/0.3 ML SYRINGE SUBCUT SCH (21:22)
[2022-10-30] MEDS: THEOPHYLLINE ANHYDROUS 200 MG CAP.ER.24H PO SCH (21:26)
[2022-10-31] VITALS (30 sets, daily range): BP systolic 82–192
[2022-10-31] MEDS: PIPERACILLIN/TAZO 2.25G/DEX-IS 50 ML IV SCH ×3 (05:36→21:16)
[2022-10-31] MEDS: PROPOFOL DRIP 100 ML IV PRN ×2 (05:38→08:20)
[2022-10-31] MEDS: THEOPHYLLINE ANHYDROUS 200 MG CAP.ER.24H PO SCH ×3 (05:39→21:17)
[2022-10-31] MEDS: INSULIN REGULAR, HUMAN 100 UNITS/ML, 3 ML VIAL (humuLIN R) SUBCUT PRN ×3 (06:23→18:06)
[2022-10-31] MEDS: ALBUTEROL MDI INHALATION 8 GM INH INH SCH ×4 (07:16→23:39)
[2022-10-31 07:45] LABS: ANION GAP 16 (5-15); CALCIUM 9.4 mg/dL (8.4-11.0); CHLORIDE 89 mmol/L (98-107); GLUCOSE 384 mg/dL (70-99); UREA NITROGEN, BLOOD 91 mg/dL (8-21)
[2022-10-31 08:04] LABS: CREATININE 8.43 mg/dL (0.55-1.30)
[2022-10-31 08:11] LABS: WHITE BLOOD COUNT (AUTO) 6.3 K/uL (4.8-10.8)
[2022-10-31 08:12] LABS: BASOPHILS % (AUTO) 0.2 % (0.0-2.0); EOSINOPHILS % (AUTO) 0.2 % (0.0-4.0); HEMATOCRIT 29.6 % (36-54); HEMOGLOBIN 9.5 g/dL (14.0-18.0); LYMPHOCYTES # (AUTO) 0.5 K/uL (1.0-5.5); LYMPHOCYTES % (AUTO) 7.3 % (20.5-51.5); MEAN CORPUSCULAR HEMOGLOBIN 29 pg (27-31); MEAN CORPUSCULAR HGB CONC 32 % (32-36); MEAN CORPUSCULAR VOLUME 90 fL (79.0-98.0); MONOCYTES % (AUTO) 3.5 % (1.7-9.3); NEUTROPHILS # (AUTO) 5.6 K/uL (1.8-7.7); NEUTROPHILS % (AUTO) 89.8 % (40.0-70.0); PLATELET COUNT (AUTO) 273 K/uL (130-430); RED CELL DISTRIBUTION WIDTH 18.9 % (9.0-15.0)
[2022-10-31 08:13] LABS: MONOCYTES # (AUTO) 0.2 K/uL (0.0-1.0)
[2022-10-31] MEDS: PANTOPRAZOLE SODIUM 40 MG/VIAL (PROTONIX) IVP SCH (08:31)
[2022-10-31] MEDS: CHOLECALCIFEROL (VITAMIN D3) 2,000 UNIT TABLET PO SCH (08:32)
[2022-10-31] MEDS: ASPIRIN 81 MG TAB.CHEW PO SCH (08:32)
[2022-10-31] MEDS: LACTULOSE 20 GM/30 ML UDC PO SCH ×2 (08:32→21:14)
[2022-10-31] MEDS: RANOLAZINE 500 MG TAB.SR.12H PO SCH (08:33)
[2022-10-31] MEDS: ATORVASTATIN 20 MG TABLET PO SCH (08:33)
[2022-10-31] MEDS: ASCORBIC ACID 500 MG TABLET PO SCH (08:33)
[2022-10-31] MEDS: DOCUSATE SODIUM 250 MG CAPSULE PO SCH ×2 (09:21→21:14)
[2022-10-31] MEDS: CALCIUM ACETATE 667 MG CAP PO SCH ×3 (09:22→18:00)
[2022-10-31] MEDS: INSULIN GLARGINE 100 UNITS/ML, 10 ML VIAL SUBCUT SCH (09:35)
[2022-10-31] MEDS: BRIMONIDINE TARTRATE 0.2% 5 mL EYE DROPS OP SCH ×2 (12:00→21:12)
[2022-10-31] MEDS: MICAFUNGIN SODIUM 50 MG in NS 50 ML IV SCH (12:25)
[2022-10-31 14:32] LABS: C-REACTIVE PROTEIN QUANT 6.4 mg/dL (0-0.5)
[2022-10-31] MEDS: MIDAZOLAM IN NACL,ISO-OSMOT/PF 100 ML IV PRN (17:54)
[2022-10-31] MEDS: DEXAMETHASONE SOD PHOSPHATE 10 MG/ML VIAL IVP SCH (21:11)
[2022-10-31] MEDS: LATANOPROST 2.5 ML DROPS (XALATAN) OP SCH (21:13)
[2022-10-31] MEDS: ENOXAPARIN SODIUM 30 MG/0.3 ML SYRINGE SUBCUT SCH (21:15)
[2022-11-01] VITALS (30 sets, daily range): BP systolic 78–164
[2022-11-01] MEDS: DOPamine PREMIX 250 ML IV PRN ×2 (00:56→19:10)
[2022-11-01] MEDS: PROPOFOL DRIP 100 ML IV PRN (00:59)
[2022-11-01] MEDS: INSULIN REGULAR, HUMAN 100 UNITS/ML, 3 ML VIAL (humuLIN R) SUBCUT PRN ×2 (05:42→08:21)
[2022-11-01 06:38] LABS: BASOPHILS % (AUTO) 0.3 % (0.0-2.0); EOSINOPHILS # (AUTO) 0.2 K/uL (0.0-0.4); EOSINOPHILS % (AUTO) 1.8 % (0.0-4.0); HEMATOCRIT 32.4 % (36-54); HEMOGLOBIN 10.3 g/dL (14.0-18.0); LYMPHOCYTES # (AUTO) 0.5 K/uL (1.0-5.5); LYMPHOCYTES % (AUTO) 5.4 % (20.5-51.5); MEAN CORPUSCULAR HEMOGLOBIN 29 pg (27-31); MEAN CORPUSCULAR HGB CONC 32 % (32-36); MEAN CORPUSCULAR VOLUME 91 fL (79.0-98.0); MONOCYTES # (AUTO) 0.5 K/uL (0.0-1.0); MONOCYTES % (AUTO) 5.3 % (1.7-9.3); NEUTROPHILS # (AUTO) 8.3 K/uL (1.8-7.7); NEUTROPHILS % (AUTO) 87.2 % (40.0-70.0); PLATELET COUNT (AUTO) 355 K/uL (130-430); RED BLOOD CELL COUNT(AUTO) 3.58 MIL/uL (4.2-6.2); RED CELL DISTRIBUTION WIDTH 19.1 % (9.0-15.0)
[2022-11-01] MEDS: THEOPHYLLINE ANHYDROUS 200 MG CAP.ER.24H PO SCH ×3 (06:58→21:56)
[2022-11-01] MEDS: PIPERACILLIN/TAZO 2.25G/DEX-IS 50 ML IV SCH ×3 (07:00→21:58)
[2022-11-01 07:01] LABS: ALANINE AMINOTRANSFERASE 63 U/L (12-78); ALBUMIN 2.5 g/dL (3.4-4.8); ANION GAP 11 (5-15); ASPARTATE AMINOTRANSFERASE 42 U/L (10-37); CALCIUM 9.2 mg/dL (8.4-11.0); CHLORIDE 99 mmol/L (98-107); CREATININE 5.84 mg/dL (0.55-1.30); GLUCOSE 305 mg/dL (70-99); TOTAL BILIRUBIN 0.5 mg/dL (0.0-1.0); UREA NITROGEN, BLOOD 53 mg/dL (8-21)
[2022-11-01] MEDS: ALBUTEROL MDI INHALATION 8 GM INH INH SCH ×3 (07:36→16:39)
[2022-11-01 07:59] LABS: WHITE BLOOD COUNT (AUTO) 9.5 K/uL (4.8-10.8)
[2022-11-01] MEDS: CALCIUM ACETATE 667 MG CAP PO SCH ×3 (08:00→18:00)
[2022-11-01] MEDS: PANTOPRAZOLE SODIUM 40 MG/VIAL (PROTONIX) IVP SCH (08:33)
[2022-11-01] MEDS: INSULIN GLARGINE 100 UNITS/ML, 10 ML VIAL SUBCUT SCH (08:38)
[2022-11-01] MEDS: BRIMONIDINE TARTRATE 0.2% 5 mL EYE DROPS OP SCH ×2 (09:00→21:56)
[2022-11-01] MEDS: ASPIRIN 81 MG TAB.CHEW PO SCH (09:02)
[2022-11-01] MEDS: DOCUSATE SODIUM 250 MG CAPSULE PO SCH ×2 (09:02→21:57)
[2022-11-01] MEDS: LACTULOSE 20 GM/30 ML UDC PO SCH ×2 (09:02→21:57)
[2022-11-01] MEDS: ATORVASTATIN 20 MG TABLET PO SCH (09:03)
[2022-11-01] MEDS: RANOLAZINE 500 MG TAB.SR.12H PO SCH (09:03)
[2022-11-01] MEDS: ASCORBIC ACID 500 MG TABLET PO SCH (09:04)
[2022-11-01] MEDS: CHOLECALCIFEROL (VITAMIN D3) 2,000 UNIT TABLET PO SCH (09:04)
[2022-11-01] MEDS: MICAFUNGIN SODIUM 50 MG in NS 50 ML IV SCH (12:02)
[2022-11-01] MEDS: LATANOPROST 2.5 ML DROPS (XALATAN) OP SCH (21:00)
[2022-11-01] MEDS: ENOXAPARIN SODIUM 30 MG/0.3 ML SYRINGE SUBCUT SCH (21:54)
[2022-11-01] MEDS: DEXAMETHASONE SOD PHOSPHATE 10 MG/ML VIAL IVP SCH (21:56)
[2022-11-02] VITALS (27 sets, daily range): BP systolic 104–165
[2022-11-02] MEDS: PROPOFOL DRIP 100 ML IV PRN ×2 (00:19→11:15)
[2022-11-02] MEDS: ALBUTEROL MDI INHALATION 8 GM INH INH SCH ×3 (04:53→20:01)
[2022-11-02] MEDS: THEOPHYLLINE ANHYDROUS 200 MG CAP.ER.24H PO SCH ×2 (05:55→14:12)
[2022-11-02] MEDS: PIPERACILLIN/TAZO 2.25G/DEX-IS 50 ML IV SCH ×3 (05:55→21:27)
[2022-11-02] MEDS: INSULIN REGULAR, HUMAN 100 UNITS/ML, 3 ML VIAL (humuLIN R) SUBCUT PRN (06:10)
[2022-11-02 07:00] LABS: BASOPHILS % (AUTO) 0.3 % (0.0-2.0); EOSINOPHILS # (AUTO) 0.1 K/uL (0.0-0.4); EOSINOPHILS % (AUTO) 0.6 % (0.0-4.0); HEMATOCRIT 30.8 % (36-54); HEMOGLOBIN 9.9 g/dL (14.0-18.0); LYMPHOCYTES # (AUTO) 0.8 K/uL (1.0-5.5); LYMPHOCYTES % (AUTO) 7.2 % (20.5-51.5); MEAN CORPUSCULAR HEMOGLOBIN 29 pg (27-31); MEAN CORPUSCULAR HGB CONC 32 % (32-36); MEAN CORPUSCULAR VOLUME 90 fL (79.0-98.0); MONOCYTES # (AUTO) 0.5 K/uL (0.0-1.0); MONOCYTES % (AUTO) 4.4 % (1.7-9.3); NEUTROPHILS # (AUTO) 9.2 K/uL (1.8-7.7); NEUTROPHILS % (AUTO) 87.5 % (40.0-70.0); PLATELET COUNT (AUTO) 313 K/uL (130-430); RED BLOOD CELL COUNT(AUTO) 3.41 MIL/uL (4.2-6.2); WHITE BLOOD COUNT (AUTO) 10.5 K/uL (4.8-10.8)
[2022-11-02 08:03] LABS: ALANINE AMINOTRANSFERASE 59 U/L (12-78); ALBUMIN 2.4 g/dL (3.4-4.8); ANION GAP 6 (5-15); ASPARTATE AMINOTRANSFERASE 38 U/L (10-37); CALCIUM 9.2 mg/dL (8.4-11.0); CHLORIDE 94 mmol/L (98-107); GLUCOSE 224 mg/dL (70-99); TOTAL BILIRUBIN 0.4 mg/dL (0.0-1.0); UREA NITROGEN, BLOOD 68 mg/dL (8-21)
[2022-11-02] MEDS: PANTOPRAZOLE SODIUM 40 MG/VIAL (PROTONIX) IVP SCH (08:30)
[2022-11-02] MEDS: CALCIUM ACETATE 667 MG CAP PO SCH ×3 (08:30→17:57)
[2022-11-02] MEDS: LACTULOSE 20 GM/30 ML UDC PO SCH ×2 (08:31→21:00)
[2022-11-02] MEDS: DOCUSATE SODIUM 250 MG CAPSULE PO SCH ×2 (08:31→21:00)
[2022-11-02] MEDS: ATORVASTATIN 20 MG TABLET PO SCH (08:31)
[2022-11-02] MEDS: ASPIRIN 81 MG TAB.CHEW PO SCH (08:31)
[2022-11-02] MEDS: ASCORBIC ACID 500 MG TABLET PO SCH (08:32)
[2022-11-02] MEDS: CHOLECALCIFEROL (VITAMIN D3) 2,000 UNIT TABLET PO SCH (08:32)
[2022-11-02] MEDS: RANOLAZINE 500 MG TAB.SR.12H PO SCH (08:33)
[2022-11-02] MEDS: INSULIN GLARGINE 100 UNITS/ML, 10 ML VIAL SUBCUT SCH (08:35)
[2022-11-02] MEDS: BRIMONIDINE TARTRATE 0.2% 5 mL EYE DROPS OP SCH ×2 (08:36→21:26)
[2022-11-02 08:56] LABS: CREATININE 7.59 mg/dL (0.55-1.30)
[2022-11-02] MEDS ORDERED: ALBUMIN HUMAN 25% 100 ML IV ONE ×2 (12:45→12:54)
[2022-11-02] MEDS: MICAFUNGIN SODIUM 50 MG in NS 50 ML IV SCH (14:11)
[2022-11-02] MEDS ORDERED: dilTIAZem HCL IVP 5 MG/ML VIAL IVP ONE (16:45)
[2022-11-02] MEDS: EPOETIN ALFA-EPBX 3,000 UNITS/ML VIAL SUBCUT SCH (17:15)
[2022-11-02] MEDS ORDERED: RACEPINEPHRINE HCL 0.5 ML VIAL.NEB INH ONE ×2 (18:00)
[2022-11-02] MEDS: ENOXAPARIN SODIUM 30 MG/0.3 ML SYRINGE SUBCUT SCH (21:00)
[2022-11-02] MEDS: LATANOPROST 2.5 ML DROPS (XALATAN) OP SCH (21:00)
[2022-11-02] MEDS: DEXAMETHASONE SOD PHOSPHATE 10 MG/ML VIAL IVP SCH (21:25)
[2022-11-03] VITALS (24 sets, daily range): BP systolic 111–162
[2022-11-03 06:36] LABS: BASOPHILS % (AUTO) 0.2 % (0.0-2.0); EOSINOPHILS % (AUTO) 0.1 % (0.0-4.0); HEMATOCRIT 29.1 % (36-54); HEMOGLOBIN 9.3 g/dL (14.0-18.0); LYMPHOCYTES # (AUTO) 0.9 K/uL (1.0-5.5); LYMPHOCYTES % (AUTO) 8.7 % (20.5-51.5); MEAN CORPUSCULAR HEMOGLOBIN 29 pg (27-31); MEAN CORPUSCULAR HGB CONC 32 % (32-36); MEAN CORPUSCULAR VOLUME 92 fL (79.0-98.0); MONOCYTES # (AUTO) 0.5 K/uL (0.0-1.0); MONOCYTES % (AUTO) 4.7 % (1.7-9.3); NEUTROPHILS # (AUTO) 8.8 K/uL (1.8-7.7); NEUTROPHILS % (AUTO) 86.3 % (40.0-70.0); PLATELET COUNT (AUTO) 230 K/uL (130-430); RED BLOOD CELL COUNT(AUTO) 3.18 MIL/uL (4.2-6.2); RED CELL DISTRIBUTION WIDTH 18.7 % (9.0-15.0); WHITE BLOOD COUNT (AUTO) 10.2 K/uL (4.8-10.8)
[2022-11-03] MEDS: PIPERACILLIN/TAZO 2.25G/DEX-IS 50 ML IV SCH ×3 (06:36→23:30)
[2022-11-03 07:03] LABS: ALANINE AMINOTRANSFERASE 47 U/L (12-78); ALBUMIN 2.4 g/dL (3.4-4.8); ANION GAP 9 (5-15); ASPARTATE AMINOTRANSFERASE 27 U/L (10-37); CHLORIDE 100 mmol/L (98-107); CREATININE 5.88 mg/dL (0.55-1.30); GLUCOSE 166 mg/dL (70-99); TOTAL BILIRUBIN 0.5 mg/dL (0.0-1.0); UREA NITROGEN, BLOOD 47 mg/dL (8-21)
[2022-11-03] MEDS: ALBUTEROL MDI INHALATION 8 GM INH INH SCH ×4 (07:36→19:45)
[2022-11-03] MEDS: CALCIUM ACETATE 667 MG CAP PO SCH ×4 (08:00→17:56)
[2022-11-03] MEDS: PANTOPRAZOLE SODIUM 40 MG/VIAL (PROTONIX) IVP SCH (08:26)
[2022-11-03] MEDS: RANOLAZINE 500 MG TAB.SR.12H PO SCH ×2 (08:27→09:00)
[2022-11-03] MEDS: CHOLECALCIFEROL (VITAMIN D3) 2,000 UNIT TABLET PO SCH ×2 (08:27→09:00)
[2022-11-03] MEDS: ASPIRIN 81 MG TAB.CHEW PO SCH ×2 (08:27→09:00)
[2022-11-03] MEDS: ATORVASTATIN 20 MG TABLET PO SCH ×2 (08:27→09:00)
[2022-11-03] MEDS: ASCORBIC ACID 500 MG TABLET PO SCH ×2 (08:28→09:00)
[2022-11-03] MEDS: LACTULOSE 20 GM/30 ML UDC PO SCH ×2 (09:00→23:28)
[2022-11-03] MEDS: INSULIN GLARGINE 100 UNITS/ML, 10 ML VIAL SUBCUT SCH (09:00)
[2022-11-03] MEDS: DOCUSATE SODIUM 250 MG CAPSULE PO SCH ×2 (09:00→23:28)
[2022-11-03] MEDS: BRIMONIDINE TARTRATE 0.2% 5 mL EYE DROPS OP SCH ×2 (10:36→22:49)
[2022-11-03] MEDS ORDERED: ALBUMIN HUMAN 25% 100 ML IV ONE (12:30)
[2022-11-03] MEDS: MICAFUNGIN SODIUM 50 MG in NS 50 ML IV SCH (15:37)
[2022-11-03] MEDS: LATANOPROST 2.5 ML DROPS (XALATAN) OP SCH (22:50)
[2022-11-03] MEDS: DEXAMETHASONE SOD PHOSPHATE 10 MG/ML VIAL IVP SCH (23:27)
[2022-11-03] MEDS: ENOXAPARIN SODIUM 30 MG/0.3 ML SYRINGE SUBCUT SCH (23:29)
[2022-11-04] VITALS (13 sets, daily range): BP systolic 135–164
[2022-11-04 06:16] LABS: BASOPHILS % (AUTO) 0.2 % (0.0-2.0); EOSINOPHILS % (AUTO) 0.2 % (0.0-4.0); HEMATOCRIT 29.1 % (36-54); HEMOGLOBIN 9.3 g/dL (14.0-18.0); LYMPHOCYTES # (AUTO) 0.8 K/uL (1.0-5.5); MEAN CORPUSCULAR HEMOGLOBIN 29 pg (27-31); MEAN CORPUSCULAR HGB CONC 32 % (32-36); MEAN CORPUSCULAR VOLUME 91 fL (79.0-98.0); MONOCYTES # (AUTO) 0.4 K/uL (0.0-1.0); MONOCYTES % (AUTO) 3.8 % (1.7-9.3); NEUTROPHILS # (AUTO) 8.6 K/uL (1.8-7.7); NEUTROPHILS % (AUTO) 87.8 % (40.0-70.0); PLATELET COUNT (AUTO) 210 K/uL (130-430); RED CELL DISTRIBUTION WIDTH 18.7 % (9.0-15.0); WHITE BLOOD COUNT (AUTO) 9.8 K/uL (4.8-10.8)
[2022-11-04 06:29] LABS: ANION GAP 12 (5-15); CALCIUM 8.9 mg/dL (8.4-11.0); CHLORIDE 97 mmol/L (98-107); CREATININE 5.45 mg/dL (0.55-1.30); GLUCOSE 133 mg/dL (70-99); UREA NITROGEN, BLOOD 37 mg/dL (8-21)
[2022-11-04] MEDS: PIPERACILLIN/TAZO 2.25G/DEX-IS 50 ML IV SCH ×3 (06:33→22:18)
[2022-11-04] MEDS: ALBUTEROL MDI INHALATION 8 GM INH INH SCH ×4 (07:35→20:53)
[2022-11-04] MEDS: RANOLAZINE 500 MG TAB.SR.12H PO SCH (08:14)
[2022-11-04] MEDS: CHOLECALCIFEROL (VITAMIN D3) 2,000 UNIT TABLET PO SCH (08:15)
[2022-11-04] MEDS: ASPIRIN 81 MG TAB.CHEW PO SCH (08:15)
[2022-11-04] MEDS: ASCORBIC ACID 500 MG TABLET PO SCH (08:15)
[2022-11-04] MEDS: ATORVASTATIN 20 MG TABLET PO SCH (08:15)
[2022-11-04] MEDS: CALCIUM ACETATE 667 MG CAP PO SCH ×3 (08:15→17:43)
[2022-11-04] MEDS: LACTULOSE 20 GM/30 ML UDC PO SCH ×2 (08:16→22:18)
[2022-11-04] MEDS: PANTOPRAZOLE SODIUM 40 MG/VIAL (PROTONIX) IVP SCH (08:16)
[2022-11-04] MEDS: DOCUSATE SODIUM 250 MG CAPSULE PO SCH ×2 (08:16→22:17)
[2022-11-04] MEDS: BRIMONIDINE TARTRATE 0.2% 5 mL EYE DROPS OP SCH ×2 (08:16→21:00)
[2022-11-04] MEDS: INSULIN GLARGINE 100 UNITS/ML, 10 ML VIAL SUBCUT SCH (08:34)
[2022-11-04] MEDS: MICAFUNGIN SODIUM 50 MG in NS 50 ML IV SCH (12:46)
[2022-11-04] MEDS: EPOETIN ALFA-EPBX 3,000 UNITS/ML VIAL SUBCUT SCH (17:46)
[2022-11-04] MEDS: LATANOPROST 2.5 ML DROPS (XALATAN) OP SCH (21:00)
[2022-11-04] MEDS: ACETAMINOPHEN 325 MG TABLET PO PRN (22:17)
[2022-11-04] MEDS: DEXAMETHASONE SOD PHOSPHATE 10 MG/ML VIAL IVP SCH (22:17)
[2022-11-04] MEDS: ENOXAPARIN SODIUM 30 MG/0.3 ML SYRINGE SUBCUT SCH (22:18)
[2022-11-05] MEDS: DIPHENHYDRAMINE INJ 50 MG/ML VIAL IVP PRN ×2 (00:37→21:05)
[2022-11-05 01:11] VITALS: BP_SYST 134
[2022-11-05] MEDS: PIPERACILLIN/TAZO 2.25G/DEX-IS 50 ML IV SCH ×3 (05:36→21:06)
[2022-11-05 06:59] LABS: BASOPHILS % (AUTO) 0.3 % (0.0-2.0); EOSINOPHILS % (AUTO) 0.1 % (0.0-4.0); HEMOGLOBIN 9.5 g/dL (14.0-18.0); LYMPHOCYTES # (AUTO) 0.6 K/uL (1.0-5.5); LYMPHOCYTES % (AUTO) 6.2 % (20.5-51.5); MEAN CORPUSCULAR HEMOGLOBIN 29 pg (27-31); MEAN CORPUSCULAR HGB CONC 32 % (32-36); MEAN CORPUSCULAR VOLUME 92 fL (79.0-98.0); MONOCYTES # (AUTO) 0.3 K/uL (0.0-1.0); MONOCYTES % (AUTO) 2.6 % (1.7-9.3); NEUTROPHILS # (AUTO) 9.3 K/uL (1.8-7.7); NEUTROPHILS % (AUTO) 90.8 % (40.0-70.0); PLATELET COUNT (AUTO) 209 K/uL (130-430); RED BLOOD CELL COUNT(AUTO) 3.28 MIL/uL (4.2-6.2); RED CELL DISTRIBUTION WIDTH 18.6 % (9.0-15.0); WHITE BLOOD COUNT (AUTO) 10.2 K/uL (4.8-10.8)
[2022-11-05 07:27] LABS: ALBUMIN 2.9 g/dL (3.4-4.8); ANION GAP 13 (5-15); ASPARTATE AMINOTRANSFERASE 23 U/L (10-37); CALCIUM 9.3 mg/dL (8.4-11.0); CHLORIDE 96 mmol/L (98-107); GLUCOSE 185 mg/dL (70-99); TOTAL BILIRUBIN 0.5 mg/dL (0.0-1.0); UREA NITROGEN, BLOOD 58 mg/dL (8-21)
[2022-11-05] MEDS: ALBUTEROL MDI INHALATION 8 GM INH INH SCH ×3 (07:30→16:14)
[2022-11-05 07:55] VITALS: BP_SYST 153
[2022-11-05 08:32] LABS: CREATININE 7.83 mg/dL (0.55-1.30)
[2022-11-05] MEDS: ASPIRIN 81 MG TAB.CHEW PO SCH (08:51)
[2022-11-05] MEDS: CALCIUM ACETATE 667 MG CAP PO SCH ×3 (08:51→18:27)
[2022-11-05] MEDS: CHOLECALCIFEROL (VITAMIN D3) 2,000 UNIT TABLET PO SCH (08:51)
[2022-11-05] MEDS: PANTOPRAZOLE SODIUM 40 MG/VIAL (PROTONIX) IVP SCH (08:51)
[2022-11-05] MEDS: ASCORBIC ACID 500 MG TABLET PO SCH (08:51)
[2022-11-05] MEDS: DOCUSATE SODIUM 250 MG CAPSULE PO SCH ×2 (08:51→21:06)
[2022-11-05 08:59] LABS: ALANINE AMINOTRANSFERASE 39 U/L (12-78)
[2022-11-05] MEDS: BRIMONIDINE TARTRATE 0.2% 5 mL EYE DROPS OP SCH ×2 (09:00→21:25)
[2022-11-05] MEDS: LACTULOSE 20 GM/30 ML UDC PO SCH (09:00)
[2022-11-05] MEDS: RANOLAZINE 500 MG TAB.SR.12H PO SCH (09:07)
[2022-11-05] MEDS: INSULIN GLARGINE 100 UNITS/ML, 10 ML VIAL SUBCUT SCH (09:17)
[2022-11-05] MEDS ORDERED: ALBUMIN HUMAN 25% 100 ML IV PRN (11:00)
[2022-11-05 14:53] VITALS: BP_SYST 135
[2022-11-05] MEDS: MICAFUNGIN SODIUM 50 MG in NS 50 ML IV SCH (15:14)
[2022-11-05 18:13] VITALS: BP_SYST 162
[2022-11-05 19:30] VITALS: BP_SYST 138
[2022-11-05] MEDS: IPRATROPIUM/ALBUTEROL SULFATE 3 ML AMPUL.NEB (DUONEB) INH SCH (20:27)
[2022-11-05] MEDS: DEXAMETHASONE SOD PHOSPHATE 10 MG/ML VIAL IVP SCH (21:05)
[2022-11-05] MEDS: ATORVASTATIN 20 MG TABLET PO SCH (21:05)
[2022-11-05] MEDS: ENOXAPARIN SODIUM 30 MG/0.3 ML SYRINGE SUBCUT SCH (21:06)
[2022-11-05] MEDS: INSULIN REGULAR, HUMAN 100 UNITS/ML, 3 ML VIAL (humuLIN R) SUBCUT PRN (21:24)
[2022-11-05] MEDS: LATANOPROST 2.5 ML DROPS (XALATAN) OP SCH (21:26)
[2022-11-06] MEDS: ACETAMINOPHEN 325 MG TABLET PO PRN ×2 (00:03→23:34)
[2022-11-06] MEDS: guaiFENesin/DEXTROMETHORPHAN 10 ML UDC PO PRN (00:03)
[2022-11-06] MEDS: IPRATROPIUM/ALBUTEROL SULFATE 3 ML AMPUL.NEB (DUONEB) INH SCH ×5 (00:31→23:33)
[2022-11-06 00:32] VITALS: BP_SYST 146
[2022-11-06] MEDS: DIPHENHYDRAMINE INJ 50 MG/ML VIAL IVP PRN (02:03)
[2022-11-06] MEDS: PIPERACILLIN/TAZO 2.25G/DEX-IS 50 ML IV SCH ×3 (06:25→22:42)
[2022-11-06 08:13] VITALS: BP_SYST 141
[2022-11-06] MEDS: CALCIUM ACETATE 667 MG CAP PO SCH ×3 (08:38→18:14)
[2022-11-06] MEDS: ASPIRIN 81 MG TAB.CHEW PO SCH (08:39)
[2022-11-06] MEDS: RANOLAZINE 500 MG TAB.SR.12H PO SCH (08:39)
[2022-11-06] MEDS: DOCUSATE SODIUM 250 MG CAPSULE PO SCH ×2 (08:39→20:23)
[2022-11-06] MEDS: ASCORBIC ACID 500 MG TABLET PO SCH (08:41)
[2022-11-06] MEDS: INSULIN GLARGINE 100 UNITS/ML, 10 ML VIAL SUBCUT SCH (08:43)
[2022-11-06] MEDS: PANTOPRAZOLE SODIUM 40 MG/VIAL (PROTONIX) IVP SCH (08:45)
[2022-11-06] MEDS: CHOLECALCIFEROL (VITAMIN D3) 2,000 UNIT TABLET PO SCH (11:00)
[2022-11-06] MEDS: BRIMONIDINE TARTRATE 0.2% 5 mL EYE DROPS OP SCH ×2 (11:16→21:00)
[2022-11-06] MEDS: INSULIN REGULAR, HUMAN 100 UNITS/ML, 3 ML VIAL (humuLIN R) SUBCUT PRN (11:19)
[2022-11-06 11:38] VITALS: BP_SYST 148
[2022-11-06] MEDS: MICAFUNGIN SODIUM 50 MG in NS 50 ML IV SCH (12:12)
[2022-11-06] MEDS ORDERED: LACTOBACILLUS RHAMNOSUS GG 1 CAP CAPSULE PO ONE (14:00)
[2022-11-06] MEDS ORDERED: LOPERAMIDE HCL 2 MG CAPSULE PO PRN (14:30)
[2022-11-06] MEDS: EPOETIN ALFA-EPBX 3,000 UNITS/ML VIAL SUBCUT SCH (16:49)
[2022-11-06 18:17] VITALS: BP_SYST 124
[2022-11-06 19:40] VITALS: BP_SYST 158
[2022-11-06] MEDS: LACTOBACILLUS RHAMNOSUS GG 1 CAP CAPSULE PO SCH (20:21)
[2022-11-06] MEDS: ATORVASTATIN 20 MG TABLET PO SCH (20:22)
[2022-11-06] MEDS: ENOXAPARIN SODIUM 30 MG/0.3 ML SYRINGE SUBCUT SCH (20:34)
[2022-11-06] MEDS ORDERED: DEXAMETHASONE SOD PHOSPHATE 10 MG/ML VIAL IVP SCH (21:00)
[2022-11-06] MEDS: LATANOPROST 2.5 ML DROPS (XALATAN) OP SCH (21:00)
[2022-11-07] VITALS: BP_SYST 134
[2022-11-07] MEDS: DIPHENHYDRAMINE INJ 50 MG/ML VIAL IVP PRN (00:43)
[2022-11-07] MEDS: guaiFENesin/DEXTROMETHORPHAN 10 ML UDC PO PRN (01:59)
[2022-11-07] MEDS: PIPERACILLIN/TAZO 2.25G/DEX-IS 50 ML IV SCH ×3 (06:32→21:28)
[2022-11-07] MEDS: INSULIN REGULAR, HUMAN 100 UNITS/ML, 3 ML VIAL (humuLIN R) SUBCUT PRN ×3 (06:41→21:56)
[2022-11-07 07:36] LABS: ALANINE AMINOTRANSFERASE 28 U/L (12-78); ALBUMIN 3.3 g/dL (3.4-4.8); ANION GAP 12 (5-15); ASPARTATE AMINOTRANSFERASE 11 U/L (10-37); CALCIUM 10.2 mg/dL (8.4-11.0); CHLORIDE 92 mmol/L (98-107); GLUCOSE 262 mg/dL (70-99); TOTAL BILIRUBIN 0.5 mg/dL (0.0-1.0); UREA NITROGEN, BLOOD 75 mg/dL (8-21)
[2022-11-07] MEDS: IPRATROPIUM/ALBUTEROL SULFATE 3 ML AMPUL.NEB (DUONEB) INH SCH ×3 (07:52→20:10)
[2022-11-07 08:00] VITALS: BP_SYST 143
[2022-11-07 08:01] LABS: BASOPHILS % (AUTO) 0.5 % (0.0-2.0); EOSINOPHILS % (AUTO) 0.1 % (0.0-4.0); HEMATOCRIT 30.9 % (36-54); HEMOGLOBIN 9.8 g/dL (14.0-18.0); LYMPHOCYTES % (AUTO) 12.7 % (20.5-51.5); MEAN CORPUSCULAR HEMOGLOBIN 29 pg (27-31); MEAN CORPUSCULAR HGB CONC 32 % (32-36); MEAN CORPUSCULAR VOLUME 92 fL (79.0-98.0); MONOCYTES # (AUTO) 0.8 K/uL (0.0-1.0); MONOCYTES % (AUTO) 9.6 % (1.7-9.3); NEUTROPHILS % (AUTO) 77.1 % (40.0-70.0); PLATELET COUNT (AUTO) 192 K/uL (130-430); RED BLOOD CELL COUNT(AUTO) 3.37 MIL/uL (4.2-6.2); RED CELL DISTRIBUTION WIDTH 18.6 % (9.0-15.0); WHITE BLOOD COUNT (AUTO) 7.8 K/uL (4.8-10.8)
[2022-11-07] MEDS: PANTOPRAZOLE SODIUM 40 MG/VIAL (PROTONIX) IVP SCH (08:33)
[2022-11-07] MEDS: CALCIUM ACETATE 667 MG CAP PO SCH ×3 (08:34→17:35)
[2022-11-07] MEDS: ASPIRIN 81 MG TAB.CHEW PO SCH (08:34)
[2022-11-07] MEDS: RANOLAZINE 500 MG TAB.SR.12H PO SCH (08:34)
[2022-11-07] MEDS: LACTOBACILLUS RHAMNOSUS GG 1 CAP CAPSULE PO SCH ×2 (08:34→21:24)
[2022-11-07] MEDS: BRIMONIDINE TARTRATE 0.2% 5 mL EYE DROPS OP SCH ×2 (08:35→21:00)
[2022-11-07] MEDS: ASCORBIC ACID 500 MG TABLET PO SCH (08:35)
[2022-11-07] MEDS: CHOLECALCIFEROL (VITAMIN D3) 2,000 UNIT TABLET PO SCH (08:35)
[2022-11-07] MEDS: DOCUSATE SODIUM 250 MG CAPSULE PO SCH ×2 (08:35→21:26)
[2022-11-07] MEDS: INSULIN GLARGINE 100 UNITS/ML, 10 ML VIAL SUBCUT SCH (08:37)
[2022-11-07 08:40] VITALS: BP_SYST 134
[2022-11-07 11:58] VITALS: BP_SYST 165
[2022-11-07] MEDS ORDERED: cloNIDine HCL 0.1 MG TABLET PO PRN (13:15)
[2022-11-07] MEDS ORDERED: DIPHENHYDRAMINE HCL 12.5 MG/5 ML UDC PO PRN (13:15)
[2022-11-07] MEDS: MICAFUNGIN SODIUM 50 MG in NS 50 ML IV SCH (13:21)
[2022-11-07 16:17] VITALS: BP_SYST 155
[2022-11-07 20:00] VITALS: BP_SYST 156
[2022-11-07] MEDS: LATANOPROST 2.5 ML DROPS (XALATAN) OP SCH (21:00)
[2022-11-07] MEDS: ENOXAPARIN SODIUM 30 MG/0.3 ML SYRINGE SUBCUT SCH (21:24)
[2022-11-07] MEDS: ATORVASTATIN 20 MG TABLET PO SCH (21:24)
[2022-11-07] MEDS: CARVEDILOL 3.125 MG TABLET (COREG) PO SCH (21:25)
[2022-11-07] MEDS: DEXAMETHASONE SOD PHOSPHATE 4 MG/ML VIAL IVP SCH (21:28)
[2022-11-08 00:46] VITALS: BP_SYST 138
[2022-11-08] MEDS: IPRATROPIUM/ALBUTEROL SULFATE 3 ML AMPUL.NEB (DUONEB) INH SCH ×4 (02:04→19:51)
[2022-11-08] MEDS: PIPERACILLIN/TAZO 2.25G/DEX-IS 50 ML IV SCH ×3 (05:36→21:33)
[2022-11-08 07:04] LABS: BASOPHILS % (AUTO) 0.3 % (0.0-2.0); EOSINOPHILS % (AUTO) 0.3 % (0.0-4.0); HEMATOCRIT 33.2 % (36-54); HEMOGLOBIN 10.5 g/dL (14.0-18.0); LYMPHOCYTES % (AUTO) 11.7 % (20.5-51.5); MEAN CORPUSCULAR HEMOGLOBIN 29 pg (27-31); MEAN CORPUSCULAR HGB CONC 32 % (32-36); MEAN CORPUSCULAR VOLUME 93 fL (79.0-98.0); MONOCYTES # (AUTO) 0.8 K/uL (0.0-1.0); MONOCYTES % (AUTO) 9.4 % (1.7-9.3); NEUTROPHILS # (AUTO) 6.9 K/uL (1.8-7.7); NEUTROPHILS % (AUTO) 78.3 % (40.0-70.0); PLATELET COUNT (AUTO) 175 K/uL (130-430); RED BLOOD CELL COUNT(AUTO) 3.58 MIL/uL (4.2-6.2); WHITE BLOOD COUNT (AUTO) 8.8 K/uL (4.8-10.8)
[2022-11-08 07:30] LABS: ANION GAP 11 (5-15); CALCIUM 10.1 mg/dL (8.4-11.0); CHLORIDE 96 mmol/L (98-107); CREATININE 6.22 mg/dL (0.55-1.30); GLUCOSE 181 mg/dL (70-99); PHOSPHORUS 2.6 mg/dL (2.7-4.5); UREA NITROGEN, BLOOD 50 mg/dL (8-21)
[2022-11-08 08:05] VITALS: BP_SYST 151
[2022-11-08] MEDS: BRIMONIDINE TARTRATE 0.2% 5 mL EYE DROPS OP SCH ×2 (09:05→20:39)
[2022-11-08] MEDS: PANTOPRAZOLE SODIUM 40 MG/VIAL (PROTONIX) IVP SCH (09:05)
[2022-11-08] MEDS: CALCIUM ACETATE 667 MG CAP PO SCH ×3 (09:06→17:17)
[2022-11-08] MEDS: ASCORBIC ACID 500 MG TABLET PO SCH (09:06)
[2022-11-08] MEDS: ASPIRIN 81 MG TAB.CHEW PO SCH (09:06)
[2022-11-08] MEDS: DOCUSATE SODIUM 250 MG CAPSULE PO SCH ×2 (09:06→20:17)
[2022-11-08] MEDS: LACTOBACILLUS RHAMNOSUS GG 1 CAP CAPSULE PO SCH ×2 (09:07→20:18)
[2022-11-08] MEDS: CARVEDILOL 3.125 MG TABLET (COREG) PO SCH (09:07)
[2022-11-08] MEDS: RANOLAZINE 500 MG TAB.SR.12H PO SCH (09:08)
[2022-11-08] MEDS: CHOLECALCIFEROL (VITAMIN D3) 2,000 UNIT TABLET PO SCH (09:08)
[2022-11-08] MEDS: INSULIN GLARGINE 100 UNITS/ML, 10 ML VIAL SUBCUT SCH (09:17)
[2022-11-08 11:36] VITALS: BP_SYST 129
[2022-11-08] MEDS ORDERED: MELATONIN 3 MG TABLET PO PRN (15:00)
[2022-11-08 16:39] VITALS: BP_SYST 132
[2022-11-08 20:00] VITALS: BP_SYST 141
[2022-11-08] MEDS: ENOXAPARIN SODIUM 30 MG/0.3 ML SYRINGE SUBCUT SCH (20:17)
[2022-11-08] MEDS: DEXAMETHASONE SOD PHOSPHATE 4 MG/ML VIAL IVP SCH (20:17)
[2022-11-08] MEDS: ATORVASTATIN 20 MG TABLET PO SCH (20:18)
[2022-11-08] MEDS: INSULIN REGULAR, HUMAN 100 UNITS/ML, 3 ML VIAL (humuLIN R) SUBCUT PRN (20:31)
[2022-11-08] MEDS: MUPIROCIN 2% TOPICAL OINTMENT 22 GM NS SCH (20:39)
[2022-11-08] MEDS: LATANOPROST 2.5 ML DROPS (XALATAN) OP SCH (20:40)
[2022-11-08] MEDS: CARVEDILOL 12.5 MG TABLET (COREG) PO SCH (20:47)
[2022-11-08] MEDS ORDERED: CARVEDILOL 3.125 MG TABLET (COREG) PO SCH (21:00)
[2022-11-09 01:00] VITALS: BP_SYST 139
[2022-11-09] MEDS: IPRATROPIUM/ALBUTEROL SULFATE 3 ML AMPUL.NEB (DUONEB) INH SCH ×4 (01:03→19:59)
[2022-11-09] MEDS ORDERED: DIPHENHYDRAMINE HCL 12.5 MG/5 ML UDC PO PRN (02:45)
[2022-11-09] MEDS: PIPERACILLIN/TAZO 2.25G/DEX-IS 50 ML IV SCH (05:16)
[2022-11-09] MEDS: INSULIN REGULAR, HUMAN 100 UNITS/ML, 3 ML VIAL (humuLIN R) SUBCUT PRN ×3 (06:23→21:31)
[2022-11-09] MEDS: guaiFENesin/DEXTROMETHORPHAN 10 ML UDC PO PRN ×2 (06:30→22:43)
[2022-11-09 06:57] LABS: BASOPHILS # (AUTO) 0.1 K/uL (0.0-0.2); BASOPHILS % (AUTO) 0.7 % (0.0-2.0); EOSINOPHILS % (AUTO) 0.5 % (0.0-4.0); HEMOGLOBIN 9.5 g/dL (14.0-18.0); LYMPHOCYTES % (AUTO) 13.7 % (20.5-51.5); MEAN CORPUSCULAR HEMOGLOBIN 29 pg (27-31); MEAN CORPUSCULAR HGB CONC 32 % (32-36); MEAN CORPUSCULAR VOLUME 92 fL (79.0-98.0); MONOCYTES # (AUTO) 0.6 K/uL (0.0-1.0); MONOCYTES % (AUTO) 7.8 % (1.7-9.3); NEUTROPHILS # (AUTO) 5.7 K/uL (1.8-7.7); NEUTROPHILS % (AUTO) 77.3 % (40.0-70.0); PLATELET COUNT (AUTO) 156 K/uL (130-430); RED BLOOD CELL COUNT(AUTO) 3.28 MIL/uL (4.2-6.2); RED CELL DISTRIBUTION WIDTH 19.9 % (9.0-15.0); WHITE BLOOD COUNT (AUTO) 7.3 K/uL (4.8-10.8)
[2022-11-09 07:22] LABS: ANION GAP 12 (5-15); CALCIUM 10.1 mg/dL (8.4-11.0); CHLORIDE 94 mmol/L (98-107); GLUCOSE 256 mg/dL (70-99); UREA NITROGEN, BLOOD 71 mg/dL (8-21)
[2022-11-09 07:52] LABS: CREATININE 9.23 mg/dL (0.55-1.30)
[2022-11-09 08:00] VITALS: BP_SYST 157
[2022-11-09] MEDS: CARVEDILOL 12.5 MG TABLET (COREG) PO SCH ×2 (09:00→20:54)
[2022-11-09] MEDS: ASPIRIN 81 MG TAB.CHEW PO SCH (09:00)
[2022-11-09] MEDS: PANTOPRAZOLE SODIUM 40 MG/VIAL (PROTONIX) IVP SCH (09:20)
[2022-11-09] MEDS: CALCIUM ACETATE 667 MG CAP PO SCH ×3 (09:20→18:39)
[2022-11-09] MEDS: ASCORBIC ACID 500 MG TABLET PO SCH (09:20)
[2022-11-09] MEDS: CHOLECALCIFEROL (VITAMIN D3) 2,000 UNIT TABLET PO SCH (09:20)
[2022-11-09] MEDS: LACTOBACILLUS RHAMNOSUS GG 1 CAP CAPSULE PO SCH ×2 (09:20→20:53)
[2022-11-09] MEDS: BRIMONIDINE TARTRATE 0.2% 5 mL EYE DROPS OP SCH ×2 (09:22→20:53)
[2022-11-09] MEDS: MUPIROCIN 2% TOPICAL OINTMENT 22 GM NS SCH ×2 (09:22→20:53)
[2022-11-09 11:23] VITALS: BP_SYST 140
[2022-11-09] MEDS: INSULIN GLARGINE 100 UNITS/ML, 10 ML VIAL SUBCUT SCH (11:48)
[2022-11-09] MEDS: DOCUSATE SODIUM 250 MG CAPSULE PO SCH ×2 (11:52→20:55)
[2022-11-09] MEDS: RANOLAZINE 500 MG TAB.SR.12H PO SCH (11:52)
[2022-11-09] MEDS: CEFEPIME 2 GM in D5W 100 ML IV SCH (14:22)
[2022-11-09] MEDS ORDERED: FUROSEMIDE 20 MG TABLET PO ONE (15:30)
[2022-11-09 15:50] VITALS: BP_SYST 127
[2022-11-09] MEDS: EPOETIN ALFA-EPBX 3,000 UNITS/ML VIAL SUBCUT SCH (17:54)
[2022-11-09 20:00] VITALS: BP_SYST 95
[2022-11-09] MEDS: ENOXAPARIN SODIUM 30 MG/0.3 ML SYRINGE SUBCUT SCH (20:53)
[2022-11-09] MEDS: LATANOPROST 2.5 ML DROPS (XALATAN) OP SCH (20:55)
[2022-11-09] MEDS: ATORVASTATIN 20 MG TABLET PO SCH (20:56)
[2022-11-10 00:45] VITALS: BP_SYST 153
[2022-11-10] MEDS: IPRATROPIUM/ALBUTEROL SULFATE 3 ML AMPUL.NEB (DUONEB) INH SCH ×4 (01:20→19:00)
[2022-11-10] MEDS: INSULIN REGULAR, HUMAN 100 UNITS/ML, 3 ML VIAL (humuLIN R) SUBCUT PRN ×4 (06:22→21:33)
[2022-11-10] MEDS: CALCIUM ACETATE 667 MG CAP PO SCH ×3 (08:00→17:55)
[2022-11-10] MEDS ORDERED: FUROSEMIDE 20 MG TABLET PO SCH (09:00)
[2022-11-10] MEDS: BRIMONIDINE TARTRATE 0.2% 5 mL EYE DROPS OP SCH ×2 (09:00→21:39)
[2022-11-10] MEDS: RANOLAZINE 500 MG TAB.SR.12H PO SCH (09:00)
[2022-11-10 09:02] VITALS: BP_SYST 160
[2022-11-10] MEDS: PANTOPRAZOLE SODIUM 40 MG/VIAL (PROTONIX) IVP SCH (10:17)
[2022-11-10] MEDS: CARVEDILOL 12.5 MG TABLET (COREG) PO SCH ×2 (10:18→21:35)
[2022-11-10] MEDS: LACTOBACILLUS RHAMNOSUS GG 1 CAP CAPSULE PO SCH ×2 (10:18→21:35)
[2022-11-10] MEDS: ASCORBIC ACID 500 MG TABLET PO SCH (10:20)
[2022-11-10] MEDS: DOCUSATE SODIUM 250 MG CAPSULE PO SCH ×2 (10:20→21:33)
[2022-11-10] MEDS: predniSONE 5 MG TABLET PO SCH (10:21)
[2022-11-10] MEDS: ASPIRIN 81 MG TAB.CHEW PO SCH (10:22)
[2022-11-10] MEDS: CHOLECALCIFEROL (VITAMIN D3) 2,000 UNIT TABLET PO SCH (10:23)
[2022-11-10] MEDS: MUPIROCIN 2% TOPICAL OINTMENT 22 GM NS SCH ×2 (10:59→21:40)
[2022-11-10] MEDS: INSULIN GLARGINE 100 UNITS/ML, 10 ML VIAL SUBCUT SCH (11:05)
[2022-11-10] MEDS: CEFEPIME 2 GM in D5W 100 ML IV SCH (11:31)
[2022-11-10 12:48] VITALS: BP_SYST 152
[2022-11-10 13:46] VITALS: BP_SYST 152
[2022-11-10 16:06] VITALS: BP_SYST 150
[2022-11-10 20:00] VITALS: BP_SYST 150
[2022-11-10] MEDS: LATANOPROST 2.5 ML DROPS (XALATAN) OP SCH (21:00)
[2022-11-10] MEDS: ATORVASTATIN 20 MG TABLET PO SCH (21:36)
[2022-11-10] MEDS: ENOXAPARIN SODIUM 30 MG/0.3 ML SYRINGE SUBCUT SCH (21:37)
[2022-11-11] MEDS: IPRATROPIUM/ALBUTEROL SULFATE 3 ML AMPUL.NEB (DUONEB) INH SCH ×4 (01:45→19:54)
[2022-11-11 01:57] VITALS: BP_SYST 127
[2022-11-11 09:10] VITALS: BP_SYST 132
[2022-11-11] MEDS: CALCIUM ACETATE 667 MG CAP PO SCH ×3 (09:14→18:12)
[2022-11-11] MEDS: DOCUSATE SODIUM 250 MG CAPSULE PO SCH (09:14)
[2022-11-11] MEDS: ASPIRIN 81 MG TAB.CHEW PO SCH (09:14)
[2022-11-11] MEDS: ASCORBIC ACID 500 MG TABLET PO SCH (09:14)
[2022-11-11] MEDS: LACTOBACILLUS RHAMNOSUS GG 1 CAP CAPSULE PO SCH ×2 (09:14→20:44)
[2022-11-11] MEDS: predniSONE 5 MG TABLET PO SCH (09:15)
[2022-11-11] MEDS: PANTOPRAZOLE SODIUM 40 MG/VIAL (PROTONIX) IVP SCH (09:15)
[2022-11-11] MEDS: CHOLECALCIFEROL (VITAMIN D3) 2,000 UNIT TABLET PO SCH (09:16)
[2022-11-11] MEDS: MUPIROCIN 2% TOPICAL OINTMENT 22 GM NS SCH ×2 (09:17→20:43)
[2022-11-11] MEDS: BRIMONIDINE TARTRATE 0.2% 5 mL EYE DROPS OP SCH ×2 (09:18→20:50)
[2022-11-11] MEDS: INSULIN GLARGINE 100 UNITS/ML, 10 ML VIAL SUBCUT SCH (12:34)
[2022-11-11] MEDS: RANOLAZINE 500 MG TAB.SR.12H PO SCH (12:35)
[2022-11-11] MEDS: FUROSEMIDE 20 MG TABLET PO SCH (12:36)
[2022-11-11] MEDS: CARVEDILOL 12.5 MG TABLET (COREG) PO SCH ×2 (12:37→20:46)
[2022-11-11] MEDS: CEFEPIME 2 GM in D5W 100 ML IV SCH (12:44)
[2022-11-11 12:49] VITALS: BP_SYST 132
[2022-11-11 16:44] VITALS: BP_SYST 140
[2022-11-11] MEDS: EPOETIN ALFA-EPBX 3,000 UNITS/ML VIAL SUBCUT SCH (18:13)
[2022-11-11] MEDS: INSULIN REGULAR, HUMAN 100 UNITS/ML, 3 ML VIAL (humuLIN R) SUBCUT PRN ×2 (18:19→20:58)
[2022-11-11 20:00] VITALS: BP_SYST 138
[2022-11-11] MEDS: ATORVASTATIN 20 MG TABLET PO SCH (20:44)
[2022-11-11] MEDS: ENOXAPARIN SODIUM 30 MG/0.3 ML SYRINGE SUBCUT SCH (20:49)
[2022-11-11] MEDS: LATANOPROST 2.5 ML DROPS (XALATAN) OP SCH (21:00)
[2022-11-11] MEDS ORDERED: DIPHENHYDRAMINE INJ 50 MG/ML VIAL IVP PRN (22:30)
[2022-11-12 00:23] VITALS: BP_SYST 136
[2022-11-12] MEDS: IPRATROPIUM/ALBUTEROL SULFATE 3 ML AMPUL.NEB (DUONEB) INH SCH ×4 (02:24→19:58)
[2022-11-12 07:08] LABS: BASOPHILS % (AUTO) 0.4 % (0.0-2.0); EOSINOPHILS # (AUTO) 0.2 K/uL (0.0-0.4); EOSINOPHILS % (AUTO) 2.2 % (0.0-4.0); HEMATOCRIT 33.5 % (36-54); HEMOGLOBIN 10.7 g/dL (14.0-18.0); LYMPHOCYTES # (AUTO) 1.3 K/uL (1.0-5.5); LYMPHOCYTES % (AUTO) 15.2 % (20.5-51.5); MEAN CORPUSCULAR HEMOGLOBIN 30 pg (27-31); MEAN CORPUSCULAR HGB CONC 32 % (32-36); MEAN CORPUSCULAR VOLUME 92 fL (79.0-98.0); MONOCYTES # (AUTO) 0.9 K/uL (0.0-1.0); MONOCYTES % (AUTO) 10.4 % (1.7-9.3); NEUTROPHILS # (AUTO) 6.4 K/uL (1.8-7.7); NEUTROPHILS % (AUTO) 71.8 % (40.0-70.0); PLATELET COUNT (AUTO) 179 K/uL (130-430); RED BLOOD CELL COUNT(AUTO) 3.63 MIL/uL (4.2-6.2); RED CELL DISTRIBUTION WIDTH 19.8 % (9.0-15.0); WHITE BLOOD COUNT (AUTO) 8.9 K/uL (4.8-10.8)
[2022-11-12 07:32] LABS: ALANINE AMINOTRANSFERASE 25 U/L (12-78); ALBUMIN 2.9 g/dL (3.4-4.8); ANION GAP 14 (5-15); ASPARTATE AMINOTRANSFERASE 18 U/L (10-37); CHLORIDE 99 mmol/L (98-107); GLUCOSE 74 mg/dL (70-99); PHOSPHORUS 3.1 mg/dL (2.7-4.5); TOTAL BILIRUBIN 0.4 mg/dL (0.0-1.0); UREA NITROGEN, BLOOD 57 mg/dL (8-21)
[2022-11-12] MEDS: CALCIUM ACETATE 667 MG CAP PO SCH ×3 (08:21→18:00)
[2022-11-12 08:24] VITALS: BP_SYST 125
[2022-11-12] MEDS: ASPIRIN 81 MG TAB.CHEW PO SCH (09:46)
[2022-11-12] MEDS: LACTOBACILLUS RHAMNOSUS GG 1 CAP CAPSULE PO SCH ×2 (09:48→21:17)
[2022-11-12] MEDS: predniSONE 5 MG TABLET PO SCH (09:48)
[2022-11-12] MEDS: FUROSEMIDE 20 MG TABLET PO SCH (09:48)
[2022-11-12] MEDS: CARVEDILOL 12.5 MG TABLET (COREG) PO SCH ×2 (09:49→21:18)
[2022-11-12] MEDS: ASCORBIC ACID 500 MG TABLET PO SCH (09:50)
[2022-11-12] MEDS: RANOLAZINE 500 MG TAB.SR.12H PO SCH (09:50)
[2022-11-12] MEDS: CHOLECALCIFEROL (VITAMIN D3) 2,000 UNIT TABLET PO SCH (09:51)
[2022-11-12] MEDS: INSULIN GLARGINE 100 UNITS/ML, 10 ML VIAL SUBCUT SCH (09:53)
[2022-11-12] MEDS: PANTOPRAZOLE SODIUM 40 MG/VIAL (PROTONIX) IVP SCH (09:53)
[2022-11-12] MEDS: BRIMONIDINE TARTRATE 0.2% 5 mL EYE DROPS OP SCH ×2 (09:54→21:21)
[2022-11-12] MEDS: MUPIROCIN 2% TOPICAL OINTMENT 22 GM NS SCH ×2 (09:54→21:20)
[2022-11-12 11:43] VITALS: BP_SYST 103
[2022-11-12] MEDS: INSULIN REGULAR, HUMAN 100 UNITS/ML, 3 ML VIAL (humuLIN R) SUBCUT PRN ×3 (12:56→21:45)
[2022-11-12] MEDS ORDERED: DEXTROSE 50% JECT 50 ML DISP.SYRIN IVP PRN (13:00)
[2022-11-12 16:03] VITALS: BP_SYST 136
[2022-11-12 19:15] VITALS: BP_SYST 129
[2022-11-12] MEDS: ATORVASTATIN 20 MG TABLET PO SCH (21:19)
[2022-11-12] MEDS: ENOXAPARIN SODIUM 30 MG/0.3 ML SYRINGE SUBCUT SCH (21:20)
[2022-11-13] MEDS: IPRATROPIUM/ALBUTEROL SULFATE 3 ML AMPUL.NEB (DUONEB) INH SCH ×4 (01:00→19:50)
[2022-11-13] MEDS: ACETAMINOPHEN 325 MG TABLET PO PRN (01:35)
[2022-11-13] MEDS: LATANOPROST 2.5 ML DROPS (XALATAN) OP SCH (02:16)
[2022-11-13 05:12] VITALS: BP_SYST 129
[2022-11-13 06:23] LABS: BASOPHILS % (AUTO) 0.5 % (0.0-2.0); EOSINOPHILS # (AUTO) 0.1 K/uL (0.0-0.4); HEMOGLOBIN 9.6 g/dL (14.0-18.0); LYMPHOCYTES # (AUTO) 1.1 K/uL (1.0-5.5); MEAN CORPUSCULAR HEMOGLOBIN 29 pg (27-31); MEAN CORPUSCULAR HGB CONC 32 % (32-36); MEAN CORPUSCULAR VOLUME 92 fL (79.0-98.0); MONOCYTES # (AUTO) 0.7 K/uL (0.0-1.0); MONOCYTES % (AUTO) 11.2 % (1.7-9.3); NEUTROPHILS # (AUTO) 4.7 K/uL (1.8-7.7); NEUTROPHILS % (AUTO) 70.3 % (40.0-70.0); PLATELET COUNT (AUTO) 152 K/uL (130-430); RED BLOOD CELL COUNT(AUTO) 3.28 MIL/uL (4.2-6.2); RED CELL DISTRIBUTION WIDTH 20.3 % (9.0-15.0); WHITE BLOOD COUNT (AUTO) 6.7 K/uL (4.8-10.8)
[2022-11-13 06:46] LABS: ANION GAP 15 (5-15); CALCIUM 9.6 mg/dL (8.4-11.0); CHLORIDE 96 mmol/L (98-107); GLUCOSE 180 mg/dL (70-99); UREA NITROGEN, BLOOD 80 mg/dL (8-21)
[2022-11-13 08:00] VITALS: BP_SYST 134
[2022-11-13 08:55] LABS: CREATININE 9.58 mg/dL (0.55-1.30)
[2022-11-13] MEDS: CARVEDILOL 12.5 MG TABLET (COREG) PO SCH ×2 (09:00→23:26)
[2022-11-13] MEDS: ASPIRIN 81 MG TAB.CHEW PO SCH (09:00)
[2022-11-13] MEDS: FUROSEMIDE 20 MG TABLET PO SCH (09:00)
[2022-11-13] MEDS: MUPIROCIN 2% TOPICAL OINTMENT 22 GM NS SCH (10:08)
[2022-11-13] MEDS: predniSONE 5 MG TABLET PO SCH (10:09)
[2022-11-13] MEDS: ASCORBIC ACID 500 MG TABLET PO SCH (10:09)
[2022-11-13] MEDS: BRIMONIDINE TARTRATE 0.2% 5 mL EYE DROPS OP SCH (10:09)
[2022-11-13] MEDS: CALCIUM ACETATE 667 MG CAP PO SCH ×3 (10:09→17:03)
[2022-11-13] MEDS: LACTOBACILLUS RHAMNOSUS GG 1 CAP CAPSULE PO SCH ×2 (10:10→23:46)
[2022-11-13] MEDS: RANOLAZINE 500 MG TAB.SR.12H PO SCH (10:10)
[2022-11-13] MEDS: PANTOPRAZOLE SODIUM 40 MG/VIAL (PROTONIX) IVP SCH (10:10)
[2022-11-13] MEDS: CHOLECALCIFEROL (VITAMIN D3) 2,000 UNIT TABLET PO SCH (10:11)
[2022-11-13] MEDS: INSULIN GLARGINE 100 UNITS/ML, 10 ML VIAL SUBCUT SCH (10:51)
[2022-11-13 11:55] VITALS: BP_SYST 101
[2022-11-13] MEDS: INSULIN REGULAR, HUMAN 100 UNITS/ML, 3 ML VIAL (humuLIN R) SUBCUT PRN ×3 (12:21→23:56)
[2022-11-13] MEDS ORDERED: NEPHROVITE, (FOLIC ACID/VITAMIN B COMP W-C 1 TAB) PO ONE (15:00)
[2022-11-13 15:21] VITALS: BP_SYST 119
[2022-11-13] MEDS: EPOETIN ALFA-EPBX 3,000 UNITS/ML VIAL SUBCUT SCH (17:07)
[2022-11-13] MEDS ORDERED: HONEY WOUND DRESSING 1 EACH TP PRN (17:15)
[2022-11-13 20:00] VITALS: BP_SYST 128
[2022-11-13] MEDS ORDERED: ROSUVASTATIN CALCIUM 5 MG/TAB (CRESTOR) PO SCH (20:00)
[2022-11-13] MEDS: ENOXAPARIN SODIUM 30 MG/0.3 ML SYRINGE SUBCUT SCH (23:46)
[2022-11-14] MEDS: IPRATROPIUM/ALBUTEROL SULFATE 3 ML AMPUL.NEB (DUONEB) INH SCH ×4 (01:00→20:14)
[2022-11-14 02:09] VITALS: BP_SYST 163
[2022-11-14] MEDS: BRIMONIDINE TARTRATE 0.2% 5 mL EYE DROPS OP SCH ×3 (04:56→20:32)
[2022-11-14] MEDS: MUPIROCIN 2% TOPICAL OINTMENT 22 GM NS SCH ×3 (04:56→20:32)
[2022-11-14] MEDS: LATANOPROST 2.5 ML DROPS (XALATAN) OP SCH (04:56)
[2022-11-14] MEDS: INSULIN REGULAR, HUMAN 100 UNITS/ML, 3 ML VIAL (humuLIN R) SUBCUT PRN ×4 (06:54→20:40)
[2022-11-14 07:44] VITALS: BP_SYST 113
[2022-11-14] MEDS: HONEY WOUND DRESSING 1 EACH TP SCH (09:00)
[2022-11-14] MEDS ORDERED: ROSUVASTATIN CALCIUM 20 MG PO SCH (09:00)
[2022-11-14] MEDS: ASPIRIN 81 MG TAB.CHEW PO SCH (09:28)
[2022-11-14] MEDS: predniSONE 5 MG TABLET PO SCH (09:28)
[2022-11-14] MEDS: CALCIUM ACETATE 667 MG CAP PO SCH ×3 (09:28→17:08)
[2022-11-14] MEDS: ASCORBIC ACID 500 MG TABLET PO SCH (09:28)
[2022-11-14] MEDS: NEPHROVITE, (FOLIC ACID/VITAMIN B COMP W-C 1 TAB) PO SCH (09:28)
[2022-11-14] MEDS: LACTOBACILLUS RHAMNOSUS GG 1 CAP CAPSULE PO SCH ×2 (09:28→20:33)
[2022-11-14] MEDS: RANOLAZINE 500 MG TAB.SR.12H PO SCH (09:28)
[2022-11-14] MEDS: CARVEDILOL 25 MG TABLET (COREG) PO SCH ×2 (09:29→20:33)
[2022-11-14] MEDS: CHOLECALCIFEROL (VITAMIN D3) 2,000 UNIT TABLET PO SCH (09:29)
[2022-11-14] MEDS: FUROSEMIDE 20 MG TABLET PO SCH (09:29)
[2022-11-14] MEDS: PANTOPRAZOLE SODIUM 40 MG/VIAL (PROTONIX) IVP SCH (09:30)
[2022-11-14] MEDS: INSULIN GLARGINE 100 UNITS/ML, 10 ML VIAL SUBCUT SCH (09:41)
[2022-11-14 11:20] VITALS: BP_SYST 138
[2022-11-14 12:00] VITALS: BP_SYST 138
[2022-11-14 15:29] VITALS: BP_SYST 141
[2022-11-14 17:33] VITALS: BP_SYST 141
[2022-11-14] MEDS: ENOXAPARIN SODIUM 30 MG/0.3 ML SYRINGE SUBCUT SCH (20:32)
[2022-11-14] MEDS: ROSUVASTATIN CALCIUM 20 MG PO SCH (20:34)
[2022-11-15] MEDS: LATANOPROST 2.5 ML DROPS (XALATAN) OP SCH ×2 (00:37→21:41)
[2022-11-15 00:52] VITALS: BP_SYST 136
[2022-11-15] MEDS: IPRATROPIUM/ALBUTEROL SULFATE 3 ML AMPUL.NEB (DUONEB) INH SCH ×4 (01:19→19:45)
[2022-11-15 08:07] VITALS: BP_SYST 112
[2022-11-15] MEDS: PANTOPRAZOLE SODIUM 40 MG/VIAL (PROTONIX) IVP SCH (08:54)
[2022-11-15] MEDS: CALCIUM ACETATE 667 MG CAP PO SCH ×3 (08:54→17:38)
[2022-11-15] MEDS: MUPIROCIN 2% TOPICAL OINTMENT 22 GM NS SCH ×2 (08:55→21:40)
[2022-11-15] MEDS: BRIMONIDINE TARTRATE 0.2% 5 mL EYE DROPS OP SCH ×2 (08:55→21:40)
[2022-11-15] MEDS: ASPIRIN 81 MG TAB.CHEW PO SCH (08:56)
[2022-11-15] MEDS: CARVEDILOL 25 MG TABLET (COREG) PO SCH ×2 (08:57→21:43)
[2022-11-15] MEDS: LACTOBACILLUS RHAMNOSUS GG 1 CAP CAPSULE PO SCH ×2 (08:57→21:43)
[2022-11-15] MEDS: NEPHROVITE, (FOLIC ACID/VITAMIN B COMP W-C 1 TAB) PO SCH (08:58)
[2022-11-15] MEDS: FUROSEMIDE 20 MG TABLET PO SCH (08:58)
[2022-11-15] MEDS: predniSONE 5 MG TABLET PO SCH (08:58)
[2022-11-15] MEDS: CHOLECALCIFEROL (VITAMIN D3) 2,000 UNIT TABLET PO SCH (08:59)
[2022-11-15] MEDS: ASCORBIC ACID 500 MG TABLET PO SCH (08:59)
[2022-11-15] MEDS: INSULIN GLARGINE 100 UNITS/ML, 10 ML VIAL SUBCUT SCH (09:02)
[2022-11-15] MEDS: HONEY WOUND DRESSING 1 EACH TP SCH (09:03)
[2022-11-15] MEDS: RANOLAZINE 500 MG TAB.SR.12H PO SCH (09:09)
[2022-11-15 11:35] VITALS: BP_SYST 126
[2022-11-15] MEDS: INSULIN REGULAR, HUMAN 100 UNITS/ML, 3 ML VIAL (humuLIN R) SUBCUT PRN ×3 (13:12→21:56)
[2022-11-15 16:51] VITALS: BP_SYST 124
[2022-11-15 20:00] VITALS: BP_SYST 131
[2022-11-15] MEDS: ROSUVASTATIN CALCIUM 20 MG PO SCH (21:44)
[2022-11-15] MEDS: ENOXAPARIN SODIUM 30 MG/0.3 ML SYRINGE SUBCUT SCH (21:45)
[2022-11-16 00:30] VITALS: BP_SYST 113
[2022-11-16] MEDS: IPRATROPIUM/ALBUTEROL SULFATE 3 ML AMPUL.NEB (DUONEB) INH SCH ×4 (01:00→19:46)
[2022-11-16 06:08] LABS: BASOPHILS % (AUTO) 0.4 % (0.0-2.0); EOSINOPHILS # (AUTO) 0.2 K/uL (0.0-0.4); EOSINOPHILS % (AUTO) 2.5 % (0.0-4.0); HEMATOCRIT 31.4 % (36-54); HEMOGLOBIN 9.9 g/dL (14.0-18.0); LYMPHOCYTES % (AUTO) 17.3 % (20.5-51.5); MEAN CORPUSCULAR HEMOGLOBIN 29 pg (27-31); MEAN CORPUSCULAR HGB CONC 31 % (32-36); MEAN CORPUSCULAR VOLUME 92 fL (79.0-98.0); MONOCYTES # (AUTO) 0.7 K/uL (0.0-1.0); MONOCYTES % (AUTO) 11.6 % (1.7-9.3); NEUTROPHILS # (AUTO) 4.1 K/uL (1.8-7.7); NEUTROPHILS % (AUTO) 68.2 % (40.0-70.0); PLATELET COUNT (AUTO) 193 K/uL (130-430); RED BLOOD CELL COUNT(AUTO) 3.41 MIL/uL (4.2-6.2); RED CELL DISTRIBUTION WIDTH 20.8 % (9.0-15.0)
[2022-11-16] MEDS: INSULIN REGULAR, HUMAN 100 UNITS/ML, 3 ML VIAL (humuLIN R) SUBCUT PRN ×3 (06:29→21:21)
[2022-11-16 06:44] LABS: ALANINE AMINOTRANSFERASE 23 U/L (12-78); ALBUMIN 2.7 g/dL (3.4-4.8); ANION GAP 20 (5-15); ASPARTATE AMINOTRANSFERASE 8 U/L (10-37); CALCIUM 9.7 mg/dL (8.4-11.0); CHLORIDE 92 mmol/L (98-107); GLUCOSE 303 mg/dL (70-99); TOTAL BILIRUBIN 0.4 mg/dL (0.0-1.0)
[2022-11-16 08:32] VITALS: BP_SYST 113
[2022-11-16 08:55] LABS: UREA NITROGEN, BLOOD 127 mg/dL (8-21)
[2022-11-16 08:56] LABS: CREATININE 13.37 mg/dL (0.55-1.30)
[2022-11-16] MEDS: CARVEDILOL 25 MG TABLET (COREG) PO SCH (09:00)
[2022-11-16] MEDS: FUROSEMIDE 20 MG TABLET PO SCH (09:00)
[2022-11-16] MEDS: RANOLAZINE 500 MG TAB.SR.12H PO SCH (09:00)
[2022-11-16] MEDS: BRIMONIDINE TARTRATE 0.2% 5 mL EYE DROPS OP SCH ×2 (09:00→21:11)
[2022-11-16] MEDS: ASCORBIC ACID 500 MG TABLET PO SCH (09:00)
[2022-11-16] MEDS: MUPIROCIN 2% TOPICAL OINTMENT 22 GM NS SCH ×2 (09:00→21:09)
[2022-11-16] MEDS: HONEY WOUND DRESSING 1 EACH TP SCH (09:00)
[2022-11-16] MEDS: INSULIN GLARGINE 100 UNITS/ML, 10 ML VIAL SUBCUT SCH (09:00)
[2022-11-16 11:55] VITALS: BP_SYST 120
[2022-11-16] MEDS: CALCIUM ACETATE 667 MG CAP PO SCH ×2 (12:35→17:13)
[2022-11-16] MEDS: CHOLECALCIFEROL (VITAMIN D3) 2,000 UNIT TABLET PO SCH (12:36)
[2022-11-16] MEDS: ASPIRIN 81 MG TAB.CHEW PO SCH (12:36)
[2022-11-16] MEDS: NEPHROVITE, (FOLIC ACID/VITAMIN B COMP W-C 1 TAB) PO SCH (12:36)
[2022-11-16] MEDS: LACTOBACILLUS RHAMNOSUS GG 1 CAP CAPSULE PO SCH ×2 (12:37→21:07)
[2022-11-16] MEDS: PANTOPRAZOLE SODIUM 40 MG/VIAL (PROTONIX) IVP SCH (12:52)
[2022-11-16 16:38] VITALS: BP_SYST 134
[2022-11-16] MEDS: EPOETIN ALFA-EPBX 3,000 UNITS/ML VIAL SUBCUT SCH (17:13)
[2022-11-16 20:00] VITALS: BP_SYST 147
[2022-11-16] MEDS: LATANOPROST 2.5 ML DROPS (XALATAN) OP SCH (21:00)
[2022-11-16] MEDS: CARVEDILOL 6.25 MG TABLET (COREG) PO SCH (21:08)
[2022-11-16] MEDS: ROSUVASTATIN CALCIUM 20 MG PO SCH (21:13)
[2022-11-16] MEDS: ENOXAPARIN SODIUM 30 MG/0.3 ML SYRINGE SUBCUT SCH (21:22)
[2022-11-17] VITALS: BP_SYST 117
[2022-11-17] MEDS: IPRATROPIUM/ALBUTEROL SULFATE 3 ML AMPUL.NEB (DUONEB) INH SCH ×4 (01:00→19:46)
[2022-11-17 08:00] VITALS: BP_SYST 158
[2022-11-17] MEDS: PANTOPRAZOLE SODIUM 40 MG/VIAL (PROTONIX) IVP SCH (09:49)
[2022-11-17] MEDS: CHOLECALCIFEROL (VITAMIN D3) 2,000 UNIT TABLET PO SCH (09:49)
[2022-11-17] MEDS: CARVEDILOL 6.25 MG TABLET (COREG) PO SCH ×2 (09:50→20:45)
[2022-11-17] MEDS: FUROSEMIDE 20 MG TABLET PO SCH (09:50)
[2022-11-17] MEDS: ASCORBIC ACID 500 MG TABLET PO SCH (09:51)
[2022-11-17] MEDS: ASPIRIN 81 MG TAB.CHEW PO SCH (09:51)
[2022-11-17] MEDS: CALCIUM ACETATE 667 MG CAP PO SCH ×3 (09:51→17:33)
[2022-11-17] MEDS: NEPHROVITE, (FOLIC ACID/VITAMIN B COMP W-C 1 TAB) PO SCH (09:51)
[2022-11-17] MEDS: LACTOBACILLUS RHAMNOSUS GG 1 CAP CAPSULE PO SCH ×2 (09:51→20:44)
[2022-11-17] MEDS: INSULIN GLARGINE 100 UNITS/ML, 10 ML VIAL SUBCUT SCH (09:57)
[2022-11-17] MEDS: RANOLAZINE 500 MG TAB.SR.12H PO SCH (10:15)
[2022-11-17] MEDS: HONEY WOUND DRESSING 1 EACH TP SCH (10:16)
[2022-11-17] MEDS: MUPIROCIN 2% TOPICAL OINTMENT 22 GM NS SCH ×2 (10:21→20:50)
[2022-11-17] MEDS: BRIMONIDINE TARTRATE 0.2% 5 mL EYE DROPS OP SCH ×2 (11:28→20:46)
[2022-11-17 11:45] VITALS: BP_SYST 128
[2022-11-17] MEDS: INSULIN REGULAR, HUMAN 100 UNITS/ML, 3 ML VIAL (humuLIN R) SUBCUT PRN ×3 (11:58→20:54)
[2022-11-17 17:01] VITALS: BP_SYST 152
[2022-11-17 19:51] VITALS: BP_SYST 163
[2022-11-17] MEDS: ENOXAPARIN SODIUM 30 MG/0.3 ML SYRINGE SUBCUT SCH (20:45)
[2022-11-17] MEDS: ROSUVASTATIN CALCIUM 20 MG PO SCH (20:47)
[2022-11-17] MEDS: LATANOPROST 2.5 ML DROPS (XALATAN) OP SCH (20:54)
[2022-11-18] VITALS: BP_SYST 151
[2022-11-18] MEDS: IPRATROPIUM/ALBUTEROL SULFATE 3 ML AMPUL.NEB (DUONEB) INH SCH ×4 (01:00→19:00)
[2022-11-18 08:00] VITALS: BP_SYST 177
[2022-11-18] MEDS: CALCIUM ACETATE 667 MG CAP PO SCH ×3 (08:00→18:11)
[2022-11-18] MEDS: HONEY WOUND DRESSING 1 EACH TP SCH (09:00)
[2022-11-18 11:27] VITALS: BP_SYST 123
[2022-11-18] MEDS: INSULIN GLARGINE 100 UNITS/ML, 10 ML VIAL SUBCUT SCH (11:35)
[2022-11-18] MEDS: CHOLECALCIFEROL (VITAMIN D3) 2,000 UNIT TABLET PO SCH (11:46)
[2022-11-18] MEDS: ASCORBIC ACID 500 MG TABLET PO SCH (11:46)
[2022-11-18] MEDS: ASPIRIN 81 MG TAB.CHEW PO SCH (11:46)
[2022-11-18] MEDS: PANTOPRAZOLE SODIUM 40 MG/VIAL (PROTONIX) IVP SCH (11:47)
[2022-11-18] MEDS: FUROSEMIDE 40 MG TABLET PO SCH (11:47)
[2022-11-18] MEDS: NEPHROVITE, (FOLIC ACID/VITAMIN B COMP W-C 1 TAB) PO SCH (11:47)
[2022-11-18] MEDS: BRIMONIDINE TARTRATE 0.2% 5 mL EYE DROPS OP SCH ×2 (11:48→22:25)
[2022-11-18] MEDS: MUPIROCIN 2% TOPICAL OINTMENT 22 GM NS SCH ×2 (11:48→22:07)
[2022-11-18] MEDS: CARVEDILOL 6.25 MG TABLET (COREG) PO SCH ×2 (11:53→22:08)
[2022-11-18] MEDS: LACTOBACILLUS RHAMNOSUS GG 1 CAP CAPSULE PO SCH ×2 (11:53→22:08)
[2022-11-18] MEDS: RANOLAZINE 500 MG TAB.SR.12H PO SCH (12:06)
[2022-11-18] MEDS: INSULIN REGULAR, HUMAN 100 UNITS/ML, 3 ML VIAL (humuLIN R) SUBCUT PRN ×3 (12:20→22:28)
[2022-11-18 15:42] VITALS: BP_SYST 150
[2022-11-18 16:00] VITALS: BP_SYST 150
[2022-11-18] MEDS ORDERED: COR6.25 PO (17:55)
[2022-11-18] MEDS ORDERED: PRO40 PO (17:55)
[2022-11-18] MEDS ORDERED: NEPH PO (17:55)
[2022-11-18] MEDS ORDERED: [UNRECOGNIZED DRUG - OTHER] PO (17:55)
[2022-11-18] MEDS ORDERED: VITD2000 PO (17:55)
[2022-11-18] MEDS ORDERED: RANO500T2 PO (17:55)
[2022-11-18] MEDS ORDERED: BACTROBAN NS (17:55)
[2022-11-18] MEDS ORDERED: IPRA3AMP9 INH (17:55)
[2022-11-18] MEDS ORDERED: INSU100V9 SUBCUT (17:55)
[2022-11-18] MEDS ORDERED: PHO667 PO (17:55)
[2022-11-18] MEDS ORDERED: FURO-149 PO (17:55)
[2022-11-18] MEDS ORDERED: ASA81 PO (17:55)
[2022-11-18] MEDS: EPOETIN ALFA-EPBX 3,000 UNITS/ML VIAL SUBCUT SCH (18:13)
[2022-11-18 19:00] VITALS: BP_SYST 138
[2022-11-18] MEDS: LATANOPROST 2.5 ML DROPS (XALATAN) OP SCH (21:00)
[2022-11-18] MEDS: ROSUVASTATIN CALCIUM 20 MG PO SCH (22:08)
[2022-11-18] MEDS: ENOXAPARIN SODIUM 30 MG/0.3 ML SYRINGE SUBCUT SCH (22:09)
[2022-11-19 00:17] VITALS: BP_SYST 146
[2022-11-19] MEDS: IPRATROPIUM/ALBUTEROL SULFATE 3 ML AMPUL.NEB (DUONEB) INH SCH ×3 (01:00→14:02)
[2022-11-19] MEDS ORDERED: PANTOPRAZOLE SODIUM 40 MG TAB PO SCH (09:00)
[2022-11-19] MEDS: FUROSEMIDE 40 MG TABLET PO SCH (09:28)
[2022-11-19] MEDS: CALCIUM ACETATE 667 MG CAP PO SCH ×3 (09:28→17:20)
[2022-11-19] MEDS: CHOLECALCIFEROL (VITAMIN D3) 2,000 UNIT TABLET PO SCH (09:28)
[2022-11-19] MEDS: CARVEDILOL 6.25 MG TABLET (COREG) PO SCH (09:28)
[2022-11-19] MEDS: ASPIRIN 81 MG TAB.CHEW PO SCH (09:28)
[2022-11-19] MEDS: LACTOBACILLUS RHAMNOSUS GG 1 CAP CAPSULE PO SCH (09:28)
[2022-11-19] MEDS: HONEY WOUND DRESSING 1 EACH TP SCH (09:29)
[2022-11-19] MEDS: MUPIROCIN 2% TOPICAL OINTMENT 22 GM NS SCH (09:29)
[2022-11-19] MEDS: ASCORBIC ACID 500 MG TABLET PO SCH (09:29)
[2022-11-19] MEDS: NEPHROVITE, (FOLIC ACID/VITAMIN B COMP W-C 1 TAB) PO SCH (09:29)
[2022-11-19] MEDS: BRIMONIDINE TARTRATE 0.2% 5 mL EYE DROPS OP SCH (09:30)
[2022-11-19] MEDS: INSULIN GLARGINE 100 UNITS/ML, 10 ML VIAL SUBCUT SCH (09:42)
[2022-11-19] MEDS: RANOLAZINE 500 MG TAB.SR.12H PO SCH (09:42)
[2022-11-19 11:26] VITALS: BP_SYST 153
[2022-11-19] MEDS: INSULIN REGULAR, HUMAN 100 UNITS/ML, 3 ML VIAL (humuLIN R) SUBCUT PRN ×2 (13:11→17:23)
[2022-11-19 15:30] VITALS: BP_SYST 144
[2022-11-19 16:49] VITALS: BP_SYST 144
== END 2022-11-19 18:00 | disposition home health service (06) | DRG 870 ==
LOC: SED 15:31 → STU 22:05 → SMU 10-27 13:05 → STU 10-28 10:34 → SIC 10-28 13:09 → STU 11-04 20:47 → SMU 11-12 18:01 → STU 11-14 00:21 → SMU 11-18 17:15
PROVIDERS: ADMIT Internal Medicine; ATTEND Internal Medicine
PROC: 5A1D70Z Performance of Urinary Filtration, Intermittent, Less than 6 Hours Per Day (ICD-10-PCS; 2022-10-23)
PROC: 5A1D70Z Performance of Urinary Filtration, Intermittent, Less than 6 Hours Per Day (ICD-10-PCS; 2022-10-24)
PROC: 5A1D70Z Performance of Urinary Filtration, Intermittent, Less than 6 Hours Per Day (ICD-10-PCS; 2022-10-26)
PROC: 5A1955Z Respiratory Ventilation, Greater than 96 Consecutive Hours (ICD-10-PCS; principal; 2022-10-28)
PROC: 0BH17EZ Insertion of Endotracheal Airway into Trachea, Via Natural or Artificial Opening (ICD-10-PCS; 2022-10-28)
PROC: 05HY33Z Insertion of Infusion Device into Upper Vein, Percutaneous Approach (ICD-10-PCS; 2022-10-28)
PROC: B54MZZA Ultrasonography of Right Upper Extremity Veins, Guidance (ICD-10-PCS; 2022-10-28)
PROC: 5A12012 Performance of Cardiac Output, Single, Manual (ICD-10-PCS; 2022-10-29)
PROC: 5A1D70Z Performance of Urinary Filtration, Intermittent, Less than 6 Hours Per Day (ICD-10-PCS; 2022-10-29)
PROC: 5A1D70Z Performance of Urinary Filtration, Intermittent, Less than 6 Hours Per Day (ICD-10-PCS; 2022-10-31)
PROC: 5A1D70Z Performance of Urinary Filtration, Intermittent, Less than 6 Hours Per Day (ICD-10-PCS; 2022-11-02)
PROC: 5A09357 Assistance with Respiratory Ventilation, Less than 24 Consecutive Hours, Continuous Positive Airway Pressure (ICD-10-PCS; 2022-11-02)
PROC: 5A1D70Z Performance of Urinary Filtration, Intermittent, Less than 6 Hours Per Day (ICD-10-PCS; 2022-11-03)
PROC: 5A09357 Assistance with Respiratory Ventilation, Less than 24 Consecutive Hours, Continuous Positive Airway Pressure (ICD-10-PCS; 2022-11-03)
PROC: 5A1D70Z Performance of Urinary Filtration, Intermittent, Less than 6 Hours Per Day (ICD-10-PCS; 2022-11-04)
PROC: 5A1D70Z Performance of Urinary Filtration, Intermittent, Less than 6 Hours Per Day (ICD-10-PCS; 2022-11-07)
PROC: 4A00X4Z Measurement of Central Nervous Electrical Activity, External Approach (ICD-10-PCS; 2022-11-09)
PROC: 5A1D70Z Performance of Urinary Filtration, Intermittent, Less than 6 Hours Per Day (ICD-10-PCS; 2022-11-09)
PROC: 5A1D70Z Performance of Urinary Filtration, Intermittent, Less than 6 Hours Per Day (ICD-10-PCS; 2022-11-11)
PROC: 5A1D70Z Performance of Urinary Filtration, Intermittent, Less than 6 Hours Per Day (ICD-10-PCS; 2022-11-13)
PROC: 5A1D70Z Performance of Urinary Filtration, Intermittent, Less than 6 Hours Per Day (ICD-10-PCS; 2022-11-16)
PROC: 5A1D70Z Performance of Urinary Filtration, Intermittent, Less than 6 Hours Per Day (ICD-10-PCS; 2022-11-18)
PROC: 5A1D70Z Performance of Urinary Filtration, Intermittent, Less than 6 Hours Per Day (ICD-10-PCS; 2022-11-19)
DX: A41.9 Sepsis, unspecified organism (principal); U07.1 COVID-19; J12.82 Pneumonia due to coronavirus disease 2019; J96.21 Acute and chronic respiratory failure with hypoxia; E43 Unspecified severe protein-calorie malnutrition; G93.41 Metabolic encephalopathy; R65.21 Severe sepsis with septic shock; N18.6 End stage renal disease; I46.9 Cardiac arrest, cause unspecified; I13.2 Hypertensive heart and chronic kidney disease with heart failure and with stage 5 chronic kidney disease, or end stage renal disease; I25.10 Atherosclerotic heart disease of native coronary artery without angina pectoris; E78.5 Hyperlipidemia, unspecified; D63.8 Anemia in other chronic diseases classified elsewhere; E87.5 Hyperkalemia; F32.A Depression, unspecified; F41.9 Anxiety disorder, unspecified; R00.1 Bradycardia, unspecified; I50.9 Heart failure, unspecified; E11.22 Type 2 diabetes mellitus with diabetic chronic kidney disease; J45.909 Unspecified asthma, uncomplicated; Z87.891 Personal history of nicotine dependence; Z79.4 Long term (current) use of insulin; Z95.5 Presence of coronary angioplasty implant and graft; Z99.2 Dependence on renal dialysis
CPT/HCPCS: 36415; 36600; 70450-TC; 71045; 71250-TC; 74018; 76376; 76700-TC; 80048; 80053; 80061; 81000; 82140; 82550; 82800-TC; 82803-TC; 82962; 83036; 83605; 83615; 83735; 83880; 84100; 84484; 85025; 85379; 85384; 85610-TC; 85730-TC; 86140; 87040; 87070-TC; 87081; 87205-TC; 90937; 92610-GN; 92950; 93005; 93306; 93970; 94002; 94003; 94640; 94660; 94664; 94760; 95816; 96365; 97110-GO; 97110-GP; 97112-GP; 97116-GP; 97163-GP; 97530-GO; 97530-GP; 97535-GO; 99285; C9113; G0378; J0360; J0456; J0461; J0692; J0696; J1100; J1200; J1265; J1650; J1815; J2020; J2543; J2704; J3262; J3490; J7030; J7040; J7050; J7060; J7512; P9046; Q5106